=== PATIENT | male | born 1975 | race Hispanic/Latino ===

== ENCOUNTER 2018-02-12 11:08 | Emergency (ER) | payer SELFPAY ==
--- OUTSIDE RECORDS SUMMARY | 2018-02-12 11:14 | XMS REPORT | Continuity of Care Document ---
:1975 Author Organization Interface Problems Problem Status Onset Classification Date Comments Source Date Reported Non-ST elevation 07/12/19 10/09/2017 myocardial [address] [place] [address] elevation 07/10/19 10/07/[address] [facility] myocardial 18 infarction of unspecified site STEMI Active 07/02/19 18 [place] CHEST PAIN Active 07/02/19 [facility] Discharge 05/03/19 05/06/[address] [facility] Diagnosis: Acute 17 Hyperglycemia LOW BLOOD SUGAR Active 05/02/19 [facility] 17 [place] ABDOMINAL PAIN Active 10/11/19 14 [place] Discharge 07/17/19 07/18/2013 Diagnosis: 14 [facility] Costochondritis, Chest wall pain EXCESSIVE Active 02/14/20 URINATION 11 [facility] Diverticulitis Resolved Problem 10/09/2017 [facility] DM (<span Resolved Problem 10/09/2017 ID="[id number]"> [place] Confirmed</span>) [facility] Obesity Resolved Problem 10/09/2017 [facility] Type 2 diabetes 10/09/[address] [facility] complications [place] Obesity, 10/09/2017 unspecified [facility] Essential 10/09/2017 hypertension [place], [place] Diaphragmatic 10/09/2017 hernia without [facility] obstruction or gangrene nursing home use of 10/09/[address] [facility] drugs [facility] Body mass index 10/09/2017 34.0-34.9, adult [place] CHEST PAIN, Active UNSPECIFIED [facility] Medications Medication Details Route Status Patient Ordering Order Source Instructions Provider Date Glipizide 2.5 1 tab, Route: Inactive MG / Metformin PO, Drug Form: 2017 [place] hydrochloride TAB, Dosing 500 MG Oral Weight 95.909, Tablet kg, BID, Start date: 07/03/17 17:00:00 CDT, Duration: 30 day, Stop date: 08/02/17 9:00:00 CDT Glucophage 500 mg, 1 tab, Inactive Route: PO, Drug 2017 [facility] form: TAB, BID-Meals, Start date: 07/03/17 17:00:00 CDT, Duration: 30 day, Stop date: 08/02/17 8:00:00 CDTNotes: (Same as: Glucophage) Take with meal Glucotrol 2.5 mg, 0.5 tab, Inactive Route: PO, Drug 2017 [facility] form: TAB, BID-Before Meals, Start date: 07/03/17 16:30:00 CDT, Duration: 30 day, Stop date: 08/02/17 7:30:00 CDT metoprolol 25 mg=1 tab, PO, Active tartrate 25 mg Q12H, 0 2017 [facility] oral tablet Refill(s) pantoprazole 40 40 mg=1 tab, PO, Active mg oral enteric Daily, 0 2018 [facility] coated tablet Refill(s) isosorbide 30 mg=1 tab, PO, Active mononitrate 30 QAM, 0 Refill(s) 2017 [place] mg oral tablet, extended release atorvastatin 10 10 mg=1 tab, PO, Active MH mg oral tablet Bedtime, 0 2017 [facility] Refill(s) aspirin 325 mg 325 mg=1 tab, Active MH tablet PO, Daily, 0 2018 [facility] Refill(s) Glipizide 2.5 1 tab, PO, BID, Active MH MG / Metformin 0 Refill(s) 2017 [facility] hydrochloride 500 MG Oral Tablet Glipizide 2.5 1 tab, PO, BID, Inactive MH MG / Metformin # 60 tab, 0 2018 [facility] hydrochloride Refill(s), 500 MG Oral Pharmacy: Tablet [facility] aspirin 325 mg 325 mg=1 tab, Inactive 07/03/ MH tablet PO, Daily, # 30 2018 [facility] tab, 0 Refill(s), Pharmacy: [facility] atorvastatin 10 10 mg=1 tab, PO, Inactive MH mg oral tablet Bedtime, # 30 2018 [place] tab, 0 Refill(s), Pharmacy: [facility] isosorbide 30 mg=1 tab, PO, Inactive mononitrate 30 QAM, # 30 tab, 0 2018 [place] mg oral tablet, Refill(s), extended Pharmacy: release [facility] metoprolol 25 mg=1 tab, PO, Inactive tartrate 25 mg Q12H, # 60 tab, 2017 [facility] oral tablet 0 Refill(s), Pharmacy: [facility] pantoprazole 40 40 mg=1 tab, PO, Inactive mg oral enteric Daily, # 30 tab, 2017 [facility] coated tablet 0 Refill(s), Pharmacy: [facility] Dextrose 50% 25 gm, 50 mL, Inactive Syringe Route: IVP, Drug 2017 [facility] Form: INJ, Dosing Weight 95.909, kg, PRN, PRN Blood Glucose Results, Start date: 07/03/17 9:46:00 CDT, Duration: 30 day, Stop date: 08/02/17 9:45:00 CDT Glucagon 1 mg, Route: IM, Inactive Drug form: 2017 [facility] PDR/INJ, PRN, Dosing Weight 95.909, kg, PRN Blood Glucose Results, Start date: 07/03/17 9:46:00 CDT, Duration: 30 day, Stop date: 08/02/17 9:45:00 CDT Insulin Lispro 3 unit, 0.03 mL, Inactive Route: SUB-Q, 2017 [facility] Drug form: SOLN, Bedtime, Dosing Weight 95.909, kg, PRN Blood Glucose Results, Start date: 07/03/17 9:46:00 CDT, Duration: 30 day, Stop date: 08/02/17 9:45:00 CDTNotes: (Same as: Humalog ) Roll in palms of hands gently; Do not shake `vigorously. "Single Patient Use Only " WASTE: F/P - Black; E - Municipal Trash Bin Stable for 28 days at room temperature. Expires in days from Da te PreNexa premier 1 cap, Route: No Longer with DHA PO, Dosing Active 2017 [facility] Weight 95.909, kg, Daily, Start date: 07/03/17 9:00:00 CDT, Duration: 30 day, Stop date: 08/01/17 9:00:00 CDT 1 tab, Route: Inactive Multivitamins PO, Drug Form: 2017 [facility] with Folic Acid TAB, Dosing 0.8 mg oral Weight 95.909, tablet kg, Daily, Start date: 07/03/17 9:00:00 CDT, Duration: 30 day, Stop date: 08/01/17 9:00:00 CDT Lipitor 10 mg, 1 tab, No Longer Route: PO, Drug Active 2017 [facility] form: TAB, Bedtime, Dosing Weight 95.909, kg, Start date: 07/02/17 21:00:00 CDT, Duration: 30 day, Stop date: 07/31/17 21:00:00 CDTNotes: (Same As: Lipitor) Dextrose 50% 12.5 gm, 25 mL, No Longer Syringe Route: IVP, Drug Active 2017 [facility] Form: INJ, Dosing Weight 95.909, kg, PRN, PRN Blood Glucose Results, Start date: 07/02/17 15:30:00 CDT, Duration: 30 day, Stop date: 08/01/17 15:29:00 CDT Glucagon 1 mg, Route: IM, No Longer Drug form: Active 2017 [facility] PDR/INJ, PRN, Dosing Weight 95.909, kg, PRN Blood Glucose Results, Start date: 07/02/17 15:30:00 CDT, Duration: 30 day, Stop date: 08/01/17 15:29:00 CDT Insulin Lispro 2 unit, 0.02 mL, No Longer Route: SUB-Q, Active 2017 [facility] Drug form: SOLN, TID-Before Meals, Dosing Weight 95.909, kg, PRN Blood Glucose Results, Start date: 07/02/17 15:30:00 CDT, Duration: 30 day, Stop date: 08/01/17 15:29:00 CDTNotes: (Same as: Humalog ) Roll in palms of hands gently; Do not shake `vigorously. "Single Patient Use Only " WASTE: F/P - Black; E - Municipal Trash Bin Stable for 28 days at room temperature. Expires in days from Da te Lovenox 40 mg, 0.4 mL, No Longer Route: SUB-Q, Active 2017 [facility] Drug form: INJ, [id number], Dosing Weight 95.909, kg, Start date: 07/02/17 11:00:00 CDT, Duration: 30 day, Stop date: 07/31/17 11:00:00 CDTNotes: (Same as: Lovenox) Imdur 30 mg, 1 tab, No Longer Route: PO, Drug Active 2017 [facility] form: ERTAB, QAM, Dosing Weight 95.909, kg, Start date: 07/02/17 10:30:00 CDT, Duration: 30 day, Stop date: 08/01/17 9:00:00 CDTNotes: (Same as:Imdur) Protonix 40 mg, 1 tab, No Longer Route: PO, Drug Active 2017 [facility] form: ECTAB, Daily, Dosing Weight 95.909, kg, Start date: 07/02/17 9:00:00 CDT, Duration: 30 day, Stop date: 07/31/17 9:00:00 CDTNotes: Tablet should not be chewed or crushed. (Same as: Protonix) Dilaudid 2 mg, 1 tab, No Longer Route: PO, Drug Active 2017 [facility] form: TAB, Q6H, Dosing Weight 95.909, kg, PRN Pain Score 4-6, Start date: 07/01/17 16:16:00 CDT, Duration: 30 day, Stop date: 07/31/17 16:15:00 CDTNotes: (Same as: Dilaudid) Insulin Lispro 4 unit, 0.04 mL, No Longer Route: SUB-Q, Active 2017 [facility] Drug form: SOLN, Bedtime, Dosing Weight 95.909, kg, PRN Blood Glucose Results, Start date: 07/01/17 13:48:00 CDT, Duration: 30 day, Stop date: 07/31/17 13:47:00 CDTNotes: (Same as: Humalog ) Roll in palms of hands gently; Do not shake `vigorously. "Single Patient Use Only " WASTE: F/P - Black; E - Municipal Trash Bin Stable for 28 days at room temperature. Expires in days from Da te Dextrose 50% 12.5 gm, 25 mL, No Longer Syringe Route: IVP, Drug Active 2017 [facility] Form: INJ, Dosing Weight 95.909, kg, PRN, PRN Blood Glucose Results, Start date: 07/01/17 13:48:00 CDT, Duration: 30 day, Stop date: 07/31/17 13:47:00 CDT Glucagon 1 mg, Route: IM, No Longer Drug form: Active 2017 [facility] PDR/INJ, PRN, Dosing Weight 95.909, kg, PRN Blood Glucose Results, Start date: 07/01/17 13:48:00 CDT, Duration: 30 day, Stop date: 07/31/17 13:47:00 CDT Ketorolac 30 mg, 1 mL, No Longer Route: IV, Drug Active 2017 [facility] form: INJ, Q6H, Dosing Weight 95.909, kg, PRN Pain Score 6-10, Start date: 07/01/17 10:41:00 CDT, Duration: 4 day, Stop date: 07/05/17 10:40:00 CDTNotes: (Same as:Toradol) IV bolus must be given >15 seconds. Give IM administration slowly and deeply into the muscle. Not for use > 4 days MEDICATION WASTE Product Size: 30 mg Product Wasted: ___ mg Visipaque 75 mL, Route: Inactive IV, Drug form: 2017 [facility] SOLN, ONCE, Dosing Weight 95.909, kg, Start date: 07/01/17 10:37:00 CDT, Stop date: 07/01/17 10:37:00 CDTNotes: (Same as: Visipaque). WASTE: F/P - Black; E - Municipal Trash Bin Acetaminophen 1 tab, Route: Inactive 300 MG / PO, Drug Form: 2017 [facility] Codeine TAB, Dosing Phosphate 30 MG Weight 95.909, Oral Tablet kg, Q4H, PRN [Tylenol with Pain Score 1-3, Codeine #3] Start date: 07/01/17 10:12:00 CDT, Duration: 30 day, Stop date: 07/31/17 10:11:00 CDT aspirin 325 mg 325 mg, 1 tab, No Longer tablet Route: PO, Drug Active 2017 [facility] form: ECTAB, Daily, Dosing Weight 96.004, kg, Start date: 07/01/17 9:00:00 CDT, Duration: 30 day, Stop date: 07/30/17 9:00:00 CDTNotes: (Do Not Crush) Do not crush or chew. metoprolol 25 mg, 1 tab, No Longer tartrate Route: PO, Drug Active 2017 [facility] form: TAB, Q12H, Dosing Weight 96.004, kg, Start date: 07/01/17 9:00:00 CDT, Duration: 30 day, Stop date: 07/30/17 21:00:00 CDTNotes: (Same as: Lopressor) Sodium Chloride 750 mL, Rate: 75 Inactive 0.9% IV 750 mL ml/hr, Infuse 2017 [facility] over: 10 hr, Route: IV, Dosing Weight 95.909 kg, Total Volume: 750, Start date: 07/01/17 8:51:00 CDT, Duration: 10 hr, Stop date: 07/01/17 18:50:00 CDT, 2.14, m2 Acetaminophen 650 mg, 2 tab, No Longer Route: PO, Drug Active 2017 [facility] form: TAB, Q4H, Dosing Weight 95.909, kg, PRN Pain Score 7-10, Start date: 07/01/17 8:51:00 CDT, Duration: 30 day, Stop date: 07/31/17 8:50:00 CDTNotes: Do not exceed 4 gm/day. (Same as: Tylenol) Sodium Chloride 1,000 mL, Infuse Inactive 0.9% (Bolus) IV Over: 1 hr, [address] [place] [address] Route: IV, ONCE, Priority: STAT, Dosing Weight 96.004 kg, Start date: 07/01/17 6:52:00 CDT, Stop date: 07/01/17 6:52:00 CDT Metoprolol 5 mg, Route: Inactive IVP, Drug form: 2018 [place] INJ, ONCE, Dosing Weight 96.004, kg, Priority: STAT, Start date: 07/01/17 6:48:00 CDT, Stop date: 07/01/17 6:48:00 CDT Nitroglycerin 0.4 mg, 1 tab, Inactive 0.4 MG Route: SL, Drug 2017 [place] Sublingual form: TAB, Tablet Q5Min, Dosing Weight 96.004, kg, PRN Chest Pain, Priority: STAT, Start date: 07/01/17 6:47:00 CDT, Duration: 3 doses or times, Stop date: Limited # of timesNotes: (Same as:Nitroquick, Nitrostat) "Do Not Crush" Sublingual tablet Saline Flush 10 mL, Route: Inactive 0.9% IVP, Drug Form: 2017 [place] INJ, Dosing Weight 96.004, kg, PRN, PRN Line Flush, Start date: 07/01/17 6:33:00 CDT, Duration: 30 day, Stop date: 07/31/17 6:32:00 CDTNotes: (Same as: BD Posiflush) Nystatin 100 1 appl, TOP, Active UNT/MG Topical TID, X 7 day, # 2017 [place] Ointment 15 gm, 0 Refill(s) Cephalexin 500 500 mg=1 cap, Active MG Oral Capsule PO, QID, X 7 2017 [place] [Keflex] day, # 28 cap, 0 Refill(s) Glipizide 2.5 1 tab, PO, BID, Active MG / Metformin # 60 tab, 0 2017 [place] hydrochloride Refill(s) 500 MG Oral Tablet Insulin regular 8 unit, 0.08 mL, Inactive Route: IVP, Drug 2016 [place] form: INJ, ONCE, Dosing Weight 109.091, kg, Priority: STAT, Start date: 05/03/16 3:29:00 INSURANCE RATER, Stop date: 05/03/16 3:29:00 CSTNotes: (Same as: Humulin R and NovoLIN R) WASTE: F/P - Black; E - Municipal Trash Bin (Do not shake) Insulin regular 10 unit, 0.1 mL, Inactive Route: IVP, Drug 2017 [place] form: INJ, ONCE, Dosing Weight 109.091, kg, Priority: STAT, Start date: 05/03/16 2:39:00 INSURANCE RATER, Stop date: 05/03/16 2:39:00 CSTNotes: (Same as: Humulin R and NovoLIN R) WASTE: F/P - Black; E - Municipal Trash Bin (Do not shake) Sodium Chloride 1,000 mL, 1000 Inactive 0.154 MEQ/ML ml/hr, Infuse 2016 [place] Injectable Over: 1 hr, Solution Route: IV, 1,000, Drug form: INJ, ONCE, Priority: STAT, Dosing Weight 109.091 kg, Start date: 05/03/16 2:39:00 INSURANCE RATER, Duration: 1 doses or times, Stop date: 05/03/16 2:39:00 INSURANCE RATER Dilaudid 1 mg, Route: IV, Inactive ONCE, Dosing 2013 [facility] Weight 109.091, kg, Start date: 10/10/13 19:20:00, Stop date: 10/10/13 19:20:00 Dilaudid 0.5 mg, Route: Inactive IV, ONCE, Dosing 2013 [facility] Weight 109.091, kg, Start date: 10/10/13 18:17:00, Stop date: 10/10/13 18:17:00 Dilaudid 0.5 mg, Route: Inactive IV, ONCE, Dosing 2013 [facility] Weight 109.091, kg, Start date: 10/10/13 15:52:00, Stop date: 10/10/13 15:52:00 Dilaudid 1 mg, Route: IV, Inactive ONCE, Dosing 2013 [facility] Weight 109.091, kg, Start date: 10/10/13 14:42:00, Stop date: 10/10/13 14:42:00 normal saline 1,000 mL, Rate: Inactive 0.9% IV 1000 mL 1,000 ml/hr, 2013 [facility] Infuse over: 1 hr, Route: IV, Dosing Weight 109.091 kg, Total Volume: 1,000, Priority: STAT, Start date: 10/10/13 14:41:00, Duration: 1 doses or times, Stop date: 10/10/13 15:40:00 Zofran 4 mg, Route: Inactive IVP, Drug form: 2013 [facility] INJ, ONCE, Dosing Weight 109.091, kg, Priority: STAT, Start date: 10/10/13 14:40:00, Stop date: 10/10/13 14:40:00 indomethacin 50 50 mg=1 cap, PO, Active mg oral capsule Q8H, # 30 cap, 0 2013 Refill(s) Ketorolac 30 mg, Route: Inactive IVP, Drug form: 2013 [facility] INJ, ONCE, Dosing Weight 109.091, kg, Priority: STAT, Start date: 07/16/13 1:27:00, Stop date: 07/16/13 1:27:00 aspirin 325 mg 325 mg, Route: Inactive tablet PO, Drug form: 2013 [facility] TAB, ONCE, Dosing Weight 109.091, kg, Priority: STAT, Start date: 07/16/13 1:27:00, Stop date: 07/16/13 1:27:00 Saline Flush 5 ml, Route: Inactive 0.9% IVP, Drug Form: 2013 [facility] INJ, Dosing Weight 109.091, kg, PRN, PRN Line Flush, Start date: 07/16/13 1:27:00, Duration: 30 day, Stop date: 08/15/13 1:26:00Notes: (Same as: BD Posiflush) Glipizide 10 MG 10 mg=1 tab, PO, Active Oral Tablet Daily, # 30 tab, 2013 0 Refill(s) Metformin 500 mg=1 tab, Active hydrochloride PO, BID, # 30 2013 [place] 500 MG Oral tab, 0 Refill(s) Tablet Saline Flush 5 mL, Route: Inactive 0.9% IVP, Drug Form: 2013 INJ, Dosing Weight 109.091, kg, Q8H, PRN Line Flush, Start date: 07/11/13 0:49:00, Duration: 30 day, Stop date: 08/10/13 0:48:00, Administer at least once every 8 hoursSpecial Instructions: Administer at least once every 8 hoursNotes: Same as: BD Posiflush Sterile Aspirin / 324 mg, Route: Inactive Calcium PO, ONCE, Dosing 2013 [facility] Carbonate Weight 109.091, kg, Priority: STAT, Start date: 07/11/13 0:49:00, Stop date: 07/11/13 0:49:00 metFORmin 500 500 mg, 1 tab, PO No Longer Nriagu mg oral tablet, Route: PO, Drug Active 2010 [facility] extended form: ERTAB, release Daily, Start date: 02/14/11 4:16:00, Duration: 30 day, Stop date: 03/15/11 9:00:00 Insulin regular 6 unit, Route: IV No Longer Nriagu IV, ONCE, Start Active 2010 [facility] date: 02/14/11 4:00:00, Stop date: 02/14/11 4:00:00 Sodium Chloride 1,000 mL, Rate: IV No Longer Nriagu 0.9% (Bolus) IV 1,000 ml/hr, Active 2010 [facility] 1000 mL Infuse over: 1 hr, Route: IV, Total Volume: 1,000, Bolus Dose, Priority: STAT, Start date: 02/14/11 2:51:00, Duration: 1 doses or times, Stop date: 02/14/11 3:50:00 metFORmin 500 500 mg, 1 tab, PO Active [place] mg oral tablet PO, BID, 60 tab, 2010 Substitution Allowed Insulin regular 10 unit, Route: IVP No Longer Nriagu IVP, ONCE, Active 2010 [facility] Priority: STAT, Start date: 02/14/11 0:49:00, Stop date: 02/14/11 0:49:00 Insulin regular 10 unit, Route: SUB-Q No Longer Nriagu SUB-Q, ONCE, Active 2010 [facility] Priority: STAT, Start date: 02/13/11 23:25:00, Stop date: 02/13/11 23:25:00 Sodium Chloride 1,000 mL, Rate: IV No Longer Nriagu 0.9% (Bolus) IV 1,000 ml/hr, Active 2010 [facility] 1000 mL Infuse over: 1 hr, Route: IV, Total Volume: 1,000, Bolus Dose, Priority: STAT, Start date: 02/13/11 23:24:00, Duration: 1 doses or times, Stop date: 02/14/11 0:23:00 Allergies, Adverse Reactions, Alerts Substance Category Reaction Severity Reaction Status Date Comments Source type Reported morphine Assertion Drug Active MH allergy [facility] Vicodin Assertion Drug Active MH allergy [facility] Hollis Assertion Drug Active MH allergy [facility] Immunizations Immunization Date Given Site Status Last Updated Comments Source Results Order Name Results Value Reference Date Interpretation Comments Source Range Barium Barium Barium Swallow w Esophagus Function DX 07/02 - Swallow w Swallow - [facility] Esophagus Esophagus Function Function DX DX CLINICAL HISTORY: Dysphagia - CHEST PAIN; MORGAGNI HERNIA ON CT CHEST. Read by: Justus Chawla MD Dictated Date/time: 07/02/17 13:06 Electronically Signed by: Justus Chawla MD 07/02/17 13:19 FINAL REPORT COMPARISON: CT chest of 07/01/2017. TECHNIQUE: Thin barium was utilized for prominent LPO images. Thick barium was utilized for upright imaging of the esophagus and pharynx. Hamburger meat with paste was given to evaluate motility with solids. FINDINGS: There is no delay in passage of bolus from the pharynx into the esophagus. The cricopharyngeus relaxes normally. There is no evidence for cricopharyngeal bar or Zenker's diverticulum. Prone and LPO images of the esophagus reveal no mass lesion or stricture. Upright images of the esophagus reveals mild esophageal dysmotility. No mass lesions or strictures are visualized. Subsequently 2 separate swallows of a small piece of hamburger meat and barium barium paste were fluoroscopically followed through the length of the esophagus. There is no significant delay in passage o f the solid barium bolus from the pharynx into the esophagus and subsequently into the stomach. IMPRESSION: Mild esophageal dysmotility. Otherwise, negative video esophagram. Fluoroscopy Time: About 2.8 minute. SL: [id number] CARDIAC Troponin-I 11.00 0.00 - 07/02 Result ENZYMES ng/mL 0.40 2018 Comment: [facility] Critical Result(s) called to Jovany Evans at 07/02/2017 05:53 by BE. Read back OK. ELECTROLYT AGAP 13.8 meq/L 10.0 - 07/02 ES 20.0 /2017 [facility] ELECTROLYT Potassium 3.8 meq/L 3.5 - 5.1 07/02 ES Lvl /2017 [facility] ELECTROLYT Chloride Lvl 103 meq/L 95 - 109 07/02 ES [facility] ELECTROLYT eGFR 128 07/02 Result Comment: The eGFR is calculated using the CKD-EPI formula. In most young, healthy individuals the eGFR will be >90 mL/ min/1.73m2. The eGFR declines with age. An eGFR of 60-89 may be normal in ES mL/min/1.7 /2017 some populations, particularly the elderly, for whom the CKD-EPI formula has not been extensively validated. Use of the eGFR is not recommended in the following populations: [facility] 3m2 Individuals with unstable creatinine concentrations, including patients and those with serious co-morbid conditions. Patients with extremes in muscle mass or diet. The data above are obtained from the National Kidney Disease Education Program (NKDEP) which additionally recommends that when the eGFR is used in patients with extremes of body mass index for purposes of drug dosing, the eGFR should be multiplied by the estimated BMI. ELECTROLYT Calcium Lvl 8.2 mg/dL 8.5 - 10.5 07/02 ES [facility] ELECTROLYT Sodium Lvl 134 meq/L 135 - 145 07/02 ES [facility] ELECTROLYT CO2 21 meq/L 24 - 32 07/02 ES [facility] ELECTROLYT BUN 12 mg/dL 7 - 22 07/02 ES [facility] ELECTROLYT Creatinine 0.56 mg/dL 0.50 - 07/02 ES Lvl 1.40 /2017 [facility] ELECTROLYT Glucose Lvl 240 mg/dL 70 - 99 / ES [facility] HEMATOLOGY Lymphocytes 21.3 % 20.0 - 04/ MH 40.0 /2017 [facility] HEMATOLOGY Monocytes 8.2 % 2.0 - 12.0 / [facility] HEMATOLOGY Segs 68.3 % 45.0 - 04/ 75.0 /2018 [facility] HEMATOLOGY Basophils # 0.1 K/CMM 0.0 - 0.2 / MH /2017 [facility] HEMATOLOGY Eosinophils 0.2 K/CMM 0.0 - 0.5 / # /2018 [facility] HEMATOLOGY Monocytes # 0.8 K/CMM 0.0 - 0.8 / MH /2017 [facility] HEMATOLOGY Segs-Bands # 7.0 K/CMM 1.5 - 8.1 07/02 /2017 [facility] HEMATOLOGY Lymphocytes 2.2 K/CMM 1.0 - 5.5 / MH # /2018 [facility] HEMATOLOGY Eosinophils 1.7 % 0.0 - 4.0 / /2017 [facility] HEMATOLOGY Basophils 0.5 % 0.0 - 1.0 07/02 [facility] HEMATOLOGY MPV 8.0 fL 7.4 - 10.4 07/[address] [facility] Platelet 220 K/CMM 133 - 450 07/02 /2017 [facility] HEMATOLOGY RBC 5.24 M/CMM 4.70 - / 6.10 /[address] [facility] Hgb 15.2 g/dL 14.0 - / 18.0 /[address] [facility] WBC 10.2 K/CMM 3.7 - 10.4 07/[address] [facility] MCV 82.3 fL 80.0 - 07/02 94.0 /2017 [facility] HEMATOLOGY Hct 43.1 % 42.0 - 07/02 54.0 /[address] [facility] MCHC 35.4 g/dL 32.0 - 07/02 36.0 /[address] [facility] MCH 29.1 pg 27.0 - 07/02 31.0 /2017 [facility] HEMATOLOGY RDW 13.5 % 11.5 - / 14.5 /[address] [facility] PT 13.3 s 12.0 - / 14.7 /2017 [facility] HEMATOLOGY INR 1.01 0.85 - 07/02 1.17 /2017 [facility] HEMATOLOGY PTT 28.8 s 22.9 - / 35.8 /2018 [facility] CARDIAC Troponin-I 1.90 ng/mL 0.00 - 04 Result ENZYMES 0.40 /2018 Comment: [facility] Critical Result(s) called to Alexandria Jerome at 07/01/2017 16:38 by Read back OK. CARDIAC Troponin-I 0.08 ng/mL 0.00 - 04 ENZYMES 0.40 /2018 [facility] CHEM PANEL eGFR 120 07/01 Result Comment: The eGFR is calculated using the CKD-EPI formula. In most young, healthy individuals the eGFR will be >90 mL/ min/1.73m2. The eGFR declines with age. An eGFR of 60-89 may be normal in mL/min/1.7 some populations, particularly the elderly, for whom the CKD-EPI formula has not been extensively validated. Use of the eGFR is not recommended in the following populations: [facility] 3m2 Individuals with unstable creatinine concentrations, including patients and those with serious co-morbid conditions. Patients with extremes in muscle mass or diet. The data above are obtained from the National Kidney Disease Education Program (NKDEP) which additionally recommends that when the eGFR is used in patients with extremes of body mass index for purposes of drug dosing, the eGFR should be multiplied by the estimated BMI. CHEM PANEL Creatinine 0.65 mg/dL 0.50 - 07/01 Lvl 1.40 [facility] HEMATOLOGY Hgb 15.0 g/dL 14.0 - 07/01 18.0 [facility] Chest w/wo Chest w/wo Clinical Indication: Chest pain - possible pericardial cyst or large hiatal hernia 07/01 - contrast contrast CT /2017 - [facility] CT Comparison: None Read by: Leo Borges MD Dictated Date/time: 07/01/17 14:42 Electronically Signed by: Leo Borges MD 07/01/17 14:52 FINAL REPORT TECHNIQUE: Sequential trans-axial images were obtained thru the chest and upper abdomen before and after administration of iodinated contrast. Coronal and sagittal reconstructions were obtained. 75 cc of Visipaque was used for the exam. Dose: NQM=766 mGy-cm FINDINGS: LUNG PARENCHYMA AND PLEURA: There are no lung nodules. There is no significant interstitial lung disease. There are no pleural effusions. There is no pneumothorax. AIRWAY: The central airway is normal. . MEDIASTINUM: There is no mediastinal lymphadenopathy. There is fatty mass in the anterior mediastinum slightly to the right which is compressing the right heart border and measures 10.9 x 6.6 x 10.2 c m in size. There is a peripherally calcified lesion within the fat which may represent prior fat necrosis. There is a defect in the anterior aspect of the diaphragm. HEART: There is no evidence of RV strain. The cardiac chambers are otherwise unremarkable. There is no pericardial effusion. VASCULAR STRUCTURES: The pulmonary arteries and great vessels are unremarkable. The thoracic aorta is within normal limits.. The superior vena cava is unremarkable. OSSEOUS STRUCTURES: There are no significant osseous abnormalities seen. VISUALIZED UPPER ABDOMEN: The visualized upper abdomen is within normal limits. IMPRESSION: 1. 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 SL: [id number] CARDIAC CK MB Index 1.3 0.0 - 2.5 / ENZYMES /2017 [facility] CARDIAC CK MB 2.8 ng/mL 0.5 - 3.6 / ENZYMES /2017 [facility] CARDIAC Troponin-I null 0.00 - 04/ MH ENZYMES 0.40 /2018 [facility] CARDIAC Total CK 220 unit/L 12 - 191 07/01 ENZYMES /2017 [facility] CHEM PANEL eGFR 110 07/01 Result Comment: The eGFR is calculated using the CKD-EPI formula. In most young, healthy individuals the eGFR will be >90 mL/ min/1.73m2. The eGFR declines with age. An eGFR of 60-89 may be normal in mL/min/1.7 some populations, particularly the elderly, for whom the CKD-EPI formula has not been extensively validated. Use of the eGFR is not recommended in the following populations: [address] Individuals with unstable creatinine concentrations, including patients and those with serious co-morbid conditions. Patients with extremes in muscle mass or diet. The data above are obtained from the National Kidney Disease Education Program (NKDEP) which additionally recommends that when the eGFR is used in patients with extremes of body mass index for purposes of drug dosing, the eGFR should be multiplied by the estimated BMI. CHEM PANEL Potassium 3.8 meq/L 3.5 - 5.1 07/01 MH Lvl [facility] CHEM PANEL Sodium Lvl 132 meq/L 135 - 145 / MH [facility] CHEM PANEL Globulin 4.1 g/dL 2.7 - 4.2 / MH [facility] CHEM PANEL CO2 29 meq/L 24 - 32 / [facility] CHEM PANEL Chloride Lvl 99 meq/L 95 - 109 / [facility] CHEM PANEL AGAP 7.8 meq/L 10.0 - 04 MH 20.0 [facility] CHEM PANEL Total 8.2 g/dL 6.4 - 8.4 / MH Protein [facility] CHEM PANEL Albumin Lvl 4.1 g/dL 3.5 - 5.0 07/01 [facility] CHEM PANEL B/C Ratio 20 6 - 25 07/01 [facility] CHEM PANEL Calcium Lvl 8.5 mg/dL 8.5 - 10.5 07/01 [facility] CHEM PANEL ALT 65 unit/L 0 - 65 07/01 [facility] CHEM PANEL AST 37 unit/L 0 - 37 07/01 [facility] CHEM PANEL A/G Ratio 1.0 0.7 - 1.6 07/01 [facility] CHEM PANEL Bili Total 1.0 mg/dL 0.2 - 1.3 07/01 [facility] CHEM PANEL Alk Phos 137 unit/L 39 - 136 07/01 [facility] CHEM PANEL BUN 16 mg/dL 7 - 22 07/01 [facility] CHEM PANEL Creatinine 0.81 mg/dL 0.50 - 04 MH Lvl 1.40 [facility] CHEM PANEL Glucose Lvl 268 mg/dL 70 - 99 07/01 [facility] HEMATOLOGY Segs-Bands # 4.1 K/CMM 1.5 - 8.1 07/01 [facility] HEMATOLOGY Basophils 1.0 % 0.0 - 1.0 07/01 [facility] HEMATOLOGY Eosinophils 2.4 % 0.0 - 4.0 07/01 [facility] HEMATOLOGY Lymphocytes 2.5 K/CMM 1.0 - 5.5 07/01 [facility] HEMATOLOGY Segs 54.8 % 45.0 - 07/01 75.0 [facility] HEMATOLOGY Lymphocytes 33.4 % 20.0 - 04 MH 40.0 [facility] HEMATOLOGY Monocytes 8.4 % 2.0 - 12.0 07/01 [facility] HEMATOLOGY Monocytes # 0.6 K/CMM 0.0 - 0.8 07/01 [facility] HEMATOLOGY Basophils # 0.1 K/CMM 0.0 - 0.2 07/01 [facility] HEMATOLOGY Eosinophils 0.2 K/CMM 0.0 - 0.5 07/01 [facility] HEMATOLOGY MPV 7.9 fL 7.4 - 10.4 07/01 [facility] HEMATOLOGY RDW 13.8 % 11.5 - 07/01 MH 14.5 [facility] HEMATOLOGY Platelet 265 K/CMM 133 - 450 07/01 MH /2017 [facility] HEMATOLOGY WBC 7.4 K/CMM 3.7 - 10.4 07/01 [facility] HEMATOLOGY MCHC 36.5 g/dL 32.0 - 07/01 MH 36.0 [facility] HEMATOLOGY MCH 29.9 pg 27.0 - 07/01 MH 31.0 [facility] HEMATOLOGY MCV 81.9 fL 80.0 - 07/01 MH 94.0 [facility] HEMATOLOGY Hgb 17.2 g/dL 14.0 - 07/01 MH 18.0 [facility] HEMATOLOGY Hct 47.1 % 42.0 - 07/01 MH 54.0 [facility] HEMATOLOGY RBC 5.75 M/CMM 4.70 - 07/01 MH 6.10 [facility] Chest Chest 1view EXAM: Chest x-ray one view (frontal) 07/01 - [facility] 1view DX DX /2017 - [place] HISTORY: - stemi. Read by: Devika Fernandez MD Dictated Date/time: 07/01/17 06:56 Electronically Signed by: Devika Fernandez MD 07/01/17 07:00 FINAL REPORT COMPARISON: 07/16/2013 FINDINGS: Mediastinum: The heart shadow is severely enlarged, similar to the comparison study given differences in technique. Lungs and pleura: No focal consolidation, pleural effusion or pneumothorax. The pulmonary vascularity is normal. No acute osseous displaced abnormality is noted. IMPRESSION: The cardiac shadow is severely enlarged, similar to the prior comparison study dated 07/16/2013 and may represent cardiomegaly. Further imaging can be obtained if concern for pericardial effusion. The pulmonary vascularity is normal. SL: [id number] CHEM PANEL Bili Total 0.7 mg/dL 0.2 - 1.3 05/03 /2016 [facility] CHEM PANEL ASPARTATE 16 unit/L 0 - 37 05/03 TRANSAMINASE [facility] CHEM PANEL Total 7.4 g/dL 6.4 - 8.4 05/03 /2016 [facility] CHEM PANEL Alk Phos 147 unit/L 39 - 136 05/03 [facility] CHEM PANEL Creatinine 0.84 mg/dL 0.50 - 05/03 Lvl 1.40 /2016 [facility] CHEM PANEL BUN 12 mg/dL 7 - 22 05/03 [facility] CHEM PANEL Glucose Lvl 393 mg/dL 70 - 99 05/03 [facility] CHEM PANEL eGFR 109 05/03 Result Comment: The eGFR is calculated using the CKD-EPI formula. In most young, healthy individuals the eGFR will be >90 mL/ min/1.73m2. The eGFR declines with age. An eGFR of 60-89 may be normal in mL/min/1.7 some populations, particularly the elderly, for whom the CKD-EPI formula has not been extensively validated. Use of the eGFR is not recommended in the following populations: [address] Individuals with unstable creatinine concentrations, including patients and those with serious co-morbid conditions. Patients with extremes in muscle mass or diet. The data above are obtained from the National Kidney Disease Education Program (NKDEP) which additionally recommends that when the eGFR is used in patients with extremes of body mass index for purposes of drug dosing, the eGFR should be multiplied by the estimated BMI. CHEM PANEL Chloride Lvl 100 meq/L 95 - 109 05/03 [facility] CHEM PANEL Potassium 3.8 meq/L 3.5 - 5.1 05/03 Lvl [facility] CHEM PANEL Sodium Lvl 138 meq/L 135 - 145 05/03 [facility] CHEM PANEL Calcium Lvl 8.9 mg/dL 8.5 - 10.5 05/03 [facility] CHEM PANEL CO2 27 meq/L 24 - 32 05/03 [facility] CHEM PANEL Albumin Lvl 3.8 g/dL 3.5 - 5.0 05/03 [facility] CHEM PANEL ALANINE 45 unit/L 0 - 65 05/03 AMINOTRANS [facility]ASE CHEM PANEL AGAP 14.8 meq/L 10.0 - 02 MH 20.0 [facility] CHEM PANEL Globulin 3.6 g/dL 2.7 - 4.2 05/03 [facility] CHEM PANEL B/C Ratio 14 6 - 25 05/03 [facility] CHEM PANEL A/G Ratio 1.1 0.7 - 1.6 05/03 [facility] HEMATOLOGY Lymphocytes 2.5 K/CMM 1.0 - 5.5 05/03 MH # [facility] HEMATOLOGY Eosinophils 0.2 K/CMM 0.0 - 0.5 05/03 [facility] HEMATOLOGY Monocytes # 0.6 K/CMM 0.0 - 0.8 / [facility] HEMATOLOGY Basophils # 0.1 K/CMM 0.0 - 0.2 05/03 [facility] HEMATOLOGY Lymphocytes 29.4 % 20.0 - 02/ MH 40.0 /2016 [facility] HEMATOLOGY Segs 60.7 % 45.0 - / MH 75.0 [facility] HEMATOLOGY Monocytes 7.1 % 2.0 - 12.0 05/03 [facility] HEMATOLOGY Basophils 1.0 % 0.0 - 1.0 05/03 [facility] HEMATOLOGY Eosinophils 1.8 % 0.0 - 4.0 05/03 [facility] HEMATOLOGY Segs-Bands # 5.2 K/CMM 1.5 - 8.1 05/03 [facility] HEMATOLOGY MCH 28.3 pg 27.0 - 05/03 MH 31.0 [facility] HEMATOLOGY RDW 13.7 % 11.5 - 05/03 MH 14.5 [facility] HEMATOLOGY Hgb 15.5 g/dL 14.0 - 05/03 MH 18.0 [facility] HEMATOLOGY MCV 80.3 fL 80.0 - 05/03 94.0 [facility] HEMATOLOGY MCHC 35.2 g/dL 32.0 - 05/03 36.0 [facility] HEMATOLOGY MPV 8.3 fL 7.4 - 10.4 05/03 [facility] HEMATOLOGY Platelet 243 K/CMM 133 - 450 05/03 [facility] HEMATOLOGY RBC X 10x6 5.47 M/CMM 4.70 - 05/03 6.10 [facility] HEMATOLOGY Hct 43.9 % 42.0 - 05/03 54.0 [facility] HEMATOLOGY WBC X 10x3 8.6 K/CMM 3.7 - 10.4 05/03 [facility] URINE AND UA pH 5.0 5.0 - 8.0 05/03 [facility] URINE AND UA Spec Grav <=1.005 <=1.030 05/03 STOOL
*NA*< [facility] br/>( 7 2:55 AM) URINE AND UA Color Yellow Yellow 05/03 [facility] *NA* (05/03/16 2:55 AM) URINE AND UA Turbidity Clear Clear 05/03 STOOL [facility] (05/03/16 2:55 AM) URINE AND UA Mucus None Seen None Seen 05/03 STOOL [facility] (05/03/16 2:55 AM) URINE AND UA Bacteria None Seen None Seen 05/03 STOOL [facility] (05/03/16 2:55 AM) URINE AND UA [place] Yeast Few /HPF None Seen 05/03 STOOL /HPF [facility] URINE AND UA RBC None Seen 0 - 2 05/03 STOOL [facility] (05/03/16 2:55 AM) URINE AND UA Bili Negative Negative 05/03 STOOL [facility] *NA* (05/03/16 2:55 AM) URINE AND UA Blood Negative Negative 05/03 STOOL [facility] (05/03/16 2:55 AM) URINE AND UA Glucose 500 mg/dL Negative 05/03 STOOL mg/dL [facility] URINE AND UA Protein Negative Negative 05/03 STOOL [facility] (05/03/16 2:55 AM) URINE AND UA Ketones Negative Negative 05/03 STOOL [facility] *NA* (05/03/16 2:55 AM) URINE AND UA WBC 0-2 /HPF None Seen 05/03 [facility] /HPF [facility] URINE AND UA Nitrite Negative Negative 05/03 STOOL [facility] (05/03/16 2:55 AM) URINE AND UA 0.2 EU/dL 0.1 - 1.0 05/03 [facility] Urobilinogen [facility] URINE AND UA Leuk Est Negative Negative 05/03 STOOL [facility] (05/03/16 2:55 AM) URINE AND UA Sq Epi None Seen Few 05/03 STOOL [facility] (05/03/16 2:55 AM) URINE AND UA Mucus Few /LPF None Seen 10/10 STOOL /LPF /2013 [facility] URINE AND UA pH 5.5 5.0 - 8.0 10/10 STOOL [facility] URINE AND UA Protein Negative Negative 10/10 STOOL [facility] (10/10/13 3:25 PM) URINE AND UA Turbidity Clear Clear 10/10 STOOL [facility] (10/10/13 3:25 PM) URINE AND UA Spec Grav 1.025 <=1.030 10/10 STOOL [facility] URINE AND UA Glucose Negative Negative 10/10 STOOL [facility] (10/10/13 3:25 PM) URINE AND UA Nitrite Negative Negative 10/10 STOOL [facility] (10/10/13 3:25 PM) URINE AND UA Blood Trace Negative 10/10 STOOL [facility] *ABN* (10/10/13 3:25 PM) URINE AND UA Ketones Negative Negative 10/10 STOOL [facility] *NA* (10/10/13 3:25 PM) URINE AND UA Bili Small Negative 10/10 STOOL [facility] *ABN* (10/10/13 3:25 PM) URINE AND UA Color Yellow Yellow 10/10 STOOL [facility] *NA* (10/10/13 3:25 PM) URINE AND UA RBC 0-2 /HPF 0 - 2 10/10 STOOL [facility] URINE AND UA Bacteria Few /HPF None Seen 10/10 STOOL /HPF [facility] URINE AND UA Sq Epi Few /LPF Few /LPF 10/10 STOOL [facility] URINE AND UA WBC 3-5 /HPF None Seen 10/10 STO[facility] /HPF [facility] URINE AND UA 1.0 EU/dL 0.1 - 1.0 10/10 STOOL Urobilinogen [facility] URINE AND UA Leuk Est Small Negative 10/10 STOOL [facility] *ABN* (10/10/13 3:25 PM) CHEM PANEL Lipase Lvl 54 unit/L 73 - 393 10/10 [facility] CHEM PANEL Globulin 3.6 g/dL 2.0 - 4.0 10/10 [facility] CHEM PANEL A/G Ratio 1.0 0.7 - 1.6 10/10 [facility] CHEM PANEL B/C Ratio 17 6 - 25 10/10 [facility] CHEM PANEL AGAP 10.9 meq/L 10.0 - 10/10 20.0 /2013 [facility] CHEM PANEL AST 40 unit/L 0 - 37 10/10 [facility] CHEM PANEL Total 7.3 g/dL 6.4 - 8.4 10/10 [facility] CHEM PANEL eGFR 118 10/10 1Result Comment: The eGFR is calculated using the CKD-EPI formula. In most young, healthy individuals the eGFR will be > 90 mL/min/1.73m2. The eGFR declines with age. An eGFR of 60-89 may be normal in mL/min/1. some populations, particularly the elderly, for whom the CKD-EPI formula has not been extensively validated. Use of the eGFR is not recommended in the following populations: [facility] 3m2 Individuals with unstable creatinine concentrations, including patients and those with serious co-morbid conditions. Patients with extremes in muscle mass or diet. The data above are obtained from the National Kidney Disease Education Program (NKDEP) which additionally recommends that when the eGFR is used in patients with extremes of body mass index for purposes of drug dosing, the eGFR should be multiplied by the estimated BMI. CHEM PANEL Albumin Lvl 3.7 g/dL 3.5 - 5.0 10/10 [facility] CHEM PANEL ALT 106 unit/L 0 - 65 10/10 [facility] CHEM PANEL BUN 12 mg/dL 7 - 22 10/10 [facility] CHEM PANEL Glucose Lvl 147 mg/dL 70 - 99 10/10 2Interpretive Data: Adult reference range values reflect the clinical guidelines of the [place] [employer]. [facility] CHEM PANEL Creatinine 0.7 mg/dL 0.5 - 1.4 10/10 [facility] CHEM PANEL Alk Phos 80 unit/L 39 - 136 10/10 [facility] CHEM PANEL Potassium 3.9 meq/L 3.5 - 5.1 10/10 [facility] CHEM PANEL Sodium Lvl 140 meq/L 135 - 145 10/10 [facility] CHEM PANEL Bili Total 1.0 mg/dL 0.2 - 1.3 10/10 [facility] CHEM PANEL Calcium Lvl 8.8 mg/dL 8.5 - 10.5 10/10 [facility] CHEM PANEL Chloride Lvl 109 meq/L 95 - 109 10/10 [facility] CHEM PANEL CO2 24 meq/L 24 - 32 10/10 [facility] CHEM PANEL Amylase Lvl 23 unit/L 25 - 115 10/10 [facility] HEMATOLOGY Basophils # 0.1 K/CMM 0.0 - 0.2 10/10 [facility] HEMATOLOGY Eosinophils 0.2 K/CMM 0.0 - 0.5 10/10 [facility] HEMATOLOGY Monocytes 8.1 % 2.0 - 12.0 10/10 /2013 [facility] HEMATOLOGY Eosinophils 2.3 % 0.0 - 4.0 10/10 /2013 [facility] HEMATOLOGY Basophils 0.7 % 0.0 - 1.0 10/10 /2013 [facility] HEMATOLOGY Segs 67.6 % 45.0 - 10/10 MH 75.0 /2013 [facility] HEMATOLOGY Lymphocytes 21.3 % 20.0 - 10/10 MH 40.0 /2013 [facility] HEMATOLOGY Monocytes # 0.6 K/CMM 0.0 - 0.8 / /2013 [facility] HEMATOLOGY Segs-Bands # 5.4 K/CMM 1.5 - 8.1 10/10 /2013 [facility] HEMATOLOGY Lymphocytes 1.7 K/CMM 1.0 - 5.5 10/10 MH # /2014 [facility] HEMATOLOGY MPV 8.0 fL 7.4 - 10.4 10/10 /[address] [facility] Hgb 14.8 g/dL 14.0 - 10/10 18.0 /2013 [facility] HEMATOLOGY Hct 42.5 % 42.0 - 10/10 54.0 /2013 [facility] HEMATOLOGY RDW 13.5 % 11.5 - 10/10 14.5 /2013 [facility] HEMATOLOGY Platelet 244 K/CMM 133 - 450 10/10 /2013 [facility] HEMATOLOGY WBC 8.0 K/CMM 3.7 - 10.4 10/10 [facility] HEMATOLOGY MCV 80.5 fL 80.0 - 10/10 94.0 /[address] [facility] MCH 28.0 pg 27.0 - 10/10 31.0 /2013 [facility] HEMATOLOGY RBC 5.28 M/CMM 4.70 - 10/10 6.10 /2013 [facility] HEMATOLOGY MCHC 34.8 g/dL 32.0 - 10/10 36.0 /2013 [facility] Abdomen/Pe Abdomen/Pelv CT scan of the abdomen and pelvis with contrast: 10/10 - lv w IV is w IV /2013 - [facility] contrast contrast CT CT Exam reason: Abdominal pain, acute hx of diverticulitis with colectomy and hernia Read by: Rakesh Barksdale MD Dictated Date/time: 10/10/13 16:34 Electronically Signed by: Rakesh Barksdale MD 10/10/13 16:40 FINAL REPORT Multiple computerized axial tomograms of the abdomen and pelvis were obtained after administration of oral and intravenous contrast. Dependent volume loss is noted at the lung bases bilaterally. 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 The heart is mildly enlarged. Diffuse fatty infiltration of the liver is noted. The gallbladder is distended. Nonspecific bilateral adrenal nodularity is noted statistically likely representing adenomata. Postoperative changes are noted at the ventral abdominal wall in the midline. Liver, spleen, pancreas, kidneys and adrenal glands have an otherwise normal CT appearance. Left paramedian ventral abdominal wall hernia defect measuring 4.1 cm is noted conveying bowel and fat into a moderate to large hernia sac containing fluid. Ventral abdominal wall hernia defect laterall y on the left is noted measuring 5.8 cm conveying fat and bowel into a moderate to large hernia sac containing fluid. Skin thickening and edema are noted in the subcutaneous fat adjacent to these hernia sacs. There is dilated fluid-filled small bowel present at the lower abdomen and within the hernia sacs. Decompressed distal ileal segments are noted. The prostate and seminal vesicles are mildly enlarged. Postoperative changes are noted at the sigmoid colon. No free fluid or pneumoperitoneum is noted at the abdomen and pelvis. IMPRESSION: 1. Small bowel obstruction secondary to incarcerated hernias at the left side of the ventral abdominal wall containing small bowel, fat and fluid within the hernia sacs. 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 3. The heart is mildly enlarged. 4. Diffuse fatty infiltration of the liver is noted. 5. Gallbladder hydrops. SL:12 CARDIAC CK MB Index 0.8 0.0 - 2.5 07/16 ENZYMES [facility] CARDIAC Total CK 216 unit/L 12 - 191 07/16 ENZYMES [facility] CARDIAC CK MB 1.7 ng/mL 0.5 - 3.6 07/16 ENZYMES [facility] CARDIAC Troponin-I null 0.00 - 07/16 EN[facility]YM[facility] 0.40 /2014 [facility] CHEM PANEL eGFR 109 07/16 1Result Comment: The eGFR is calculated using the CKD-EPI formula. In most young, healthy individuals the eGFR will be > 90 mL/min/1.73m2. The eGFR declines with age. An eGFR of 60-89 may be normal in MH mL/min/1.7 /2013 some populations, particularly the elderly, for whom the CKD-EPI formula has not been extensively validated. Use of the eGFR is not recommended in the following populations: [facility] 3m2 Individuals with unstable creatinine concentrations, including patients and those with serious co-morbid conditions. Patients with extremes in muscle mass or diet. The data above are obtained from the National Kidney Disease Education Program (NKDEP) which additionally recommends that when the eGFR is used in patients with extremes of body mass index for purposes of drug dosing, the eGFR should be multiplied by the estimated BMI. CHEM PANEL Calcium Lvl 9.5 mg/dL 8.5 - 10.5 07/16 [facility] CHEM PANEL Total 8.2 g/dL 6.4 - 8.4 07/16 [facility] CHEM PANEL Bili Total 0.5 mg/dL 0.2 - 1.3 07/16 [facility] CHEM PANEL AGAP 11.0 meq/L 10.0 - 07/16 20.0 [facility] CHEM PANEL Glucose Lvl 243 mg/dL 70 - 99 07/16 2Interpretive Data: Adult reference range values reflect the clinical guidelines of the [place] [employer]. [facility] CHEM PANEL Albumin Lvl 4.3 g/dL 3.5 - 5.0 07/16 [facility] CHEM PANEL ALT 102 unit/L 0 - 65 07/16 [facility] CHEM PANEL Alk Phos 116 unit/L 39 - 136 07/16 [facility] CHEM PANEL Potassium 4.0 meq/L 3.5 - 5.1 07/16 [facility] CHEM PANEL Sodium Lvl 137 meq/L 135 - 145 07/16 [facility] CHEM PANEL BUN 13 mg/dL 7 - 22 07/16 [facility] CHEM PANEL Creatinine 0.9 mg/dL 0.5 - 1.4 07/16 [facility] CHEM PANEL Chloride Lvl 104 meq/L 95 - 109 07/16 [facility] CHEM PANEL CO2 26 meq/L 24 - 32 07/16 [facility] CHEM PANEL AST 27 unit/L 0 - 37 07/16 [facility] CHEM PANEL Globulin 3.9 g/dL 2.0 - 4.0 07/16 [facility] CHEM PANEL B/C Ratio 14 6 - 25 07/16 [facility] CHEM PANEL A/G Ratio 1.1 0.7 - 1.6 07/16 [facility] HEMATOLOGY Basophils # 0.1 K/CMM 0.0 - 0.2 07/16 /2013 [facility] HEMATOLOGY Eosinophils 0.1 K/CMM 0.0 - 0.5 07/16 MH # /2014 [facility] HEMATOLOGY Monocytes # 0.5 K/CMM 0.0 - 0.8 07/16 /2013 [facility] HEMATOLOGY Segs-Bands # 4.8 K/CMM 1.5 - 8.1 07/16 /2013 [facility] HEMATOLOGY Eosinophils 1.8 % 0.0 - 4.0 07/16 /2013 [facility] HEMATOLOGY Lymphocytes 2.3 K/CMM 1.0 - 5.5 07/16 # /2013 [facility] HEMATOLOGY Basophils 1.4 % 0.0 - 1.0 07/16 /2013 [facility] HEMATOLOGY Monocytes 6.4 % 2.0 - 12.0 07/[address] [facility] Lymphocytes 29.6 % 20.0 - 07/16 40.0 /2013 [facility] HEMATOLOGY Segs 60.8 % 45.0 - 07/16 75.0 /[address] [facility] D-Dimer 0.27 ug/mL 07/16 3Interpretive Data: In DIC, quantitative D-Dimer is generally greater than U /2013 0.66 ug/mL FEU. Values of quantitative D-Dimer less than [facility] 0.40 ug/mL FEU have been reported to be associated with a low probability of deep vein thrombosis/pulmonary embolism. This test alone should not be used to rule out DVT/PE. HEMATOLOGY MPV 8.5 fL 7.4 - 10.4 07/[address] [facility] Hgb 15.4 g/dL 14.0 - 07/[address] [facility] RBC 5.51 M/CMM 4.70 - 07/16 MH 6.10 /2013 [facility] HEMATOLOGY WBC 7.9 K/CMM 3.7 - 10.4 07/16 [facility] HEMATOLOGY MCV 81.3 fL 80.0 - 07/16 94.0 /[address] [facility] MCHC 34.5 g/dL 32.0 - 07/16 MH 36.0 /[address] [facility] MCH 28.0 pg 27.0 - 07/[address] [facility] Hct 44.8 % 42.0 - 07/16 54.0 /2013 [facility] HEMATOLOGY RDW 13.6 % 11.5 - 07/16 14. [facility] HEMATOLOGY Platelet 255 K/CMM 133 - 450 07/16 [facility] Chest Chest 1view CHEST, ONE VIEW 07/16 - - [facility] HISTORY: Chest pain Read by: Sky Schmidt Date/time: 07/16/13 02:23 Electronically Signed by: Sky Schmidt MD 07/16/13 02:24 FINAL REPORT COMPARISON: 07/11/2013 FINDINGS: Moderate to severe cardiomegaly again noted. Heart shape suggests dilated cardiomyopathy or pericardial effusion. The lungs are clear. No significant pleural effusion. No pneumothorax. Osseous structures unremarkable. SL: 14 CARDIAC CK MB 1.4 ng/mL 0.5 - 3.6 07/11 ENZYMES [facility] CARDIAC Total CK 201 unit/L 12 - 191 07/11 EN[facility]ES [facility] CARDIAC Troponin-I null 0.00 - 07/11 ENZYMES 0.40 /2013 [facility] CARDIAC CK MB Index 0.7 0.0 - 2.5 07/11 ENZYMES [facility] CHEM PANEL A/G Ratio 1.1 0.7 - 1.6 07/11 [facility] CHEM PANEL Globulin 3.7 g/dL 2.0 - 4.0 07/11 [facility] CHEM PANEL B/C Ratio 19 6 - 25 07/11 [facility] CHEM PANEL AGAP 10.7 meq/L 10.0 - 07/11 20.0 [facility] CHEM PANEL AST 34 unit/L 0 - 37 07/11 [facility] CHEM PANEL Bili Total 0.6 mg/dL 0.2 - 1.3 07/11 [facility] CHEM PANEL Total 7.7 g/dL 6.4 - 8.4 07/11 Protein [facility] CHEM PANEL CO2 24 meq/L 24 - 32 07/11 [facility] CHEM PANEL Calcium Lvl 9.0 mg/dL 8.5 - 10.5 07/11 [facility] CHEM PANEL Sodium Lvl 137 meq/L 135 - 145 07/11 [facility] CHEM PANEL Potassium 3.7 meq/L 3.5 - 5.1 07/11 Lvl [facility] CHEM PANEL Chloride Lvl 106 meq/L 95 - 109 07/11 [facility] CHEM PANEL BUN 15 mg/dL 7 - 22 07/11 [facility] CHEM PANEL Creatinine 0.8 mg/dL 0.5 - 1.4 07/11 Lvl /2013 [facility] CHEM PANEL Alk Phos 86 unit/L 39 - 136 07/11 [facility] CHEM PANEL Glucose Lvl 252 mg/dL 70 - 99 07/11 2Interpretive Data: Adult reference range values reflect the clinical guidelines of the [place] [employer]. [facility] CHEM PANEL eGFR 113 07/11 1Result Comment: The eGFR is calculated using the CKD-EPI formula. In most young, healthy individuals the eGFR will be > 90 mL/min/1.73m2. The eGFR declines with age. An eGFR of 60-89 may be normal in mL/min/1.7 some populations, particularly the elderly, for whom the CKD-EPI formula has not been extensively validated. Use of the eGFR is not recommended in the following populations: [facility] 3m2 Individuals with unstable creatinine concentrations, including patients and those with serious co-morbid conditions. Patients with extremes in muscle mass or diet. The data above are obtained from the National Kidney Disease Education Program (NKDEP) which additionally recommends that when the eGFR is used in patients with extremes of body mass index for purposes of drug dosing, the eGFR should be multiplied by the estimated BMI. CHEM PANEL Albumin Lvl 4.0 g/dL 3.5 - 5.0 07/11 [facility] CHEM PANEL ALT 108 unit/L 0 - 65 07/11 [facility] HEMATOLOGY RDW 13.7 % 11.5 - 07/11 MH 14.5 [facility] HEMATOLOGY Hct 43.2 % 42.0 - 07/11 MH 54.0 [facility] HEMATOLOGY MCV 81.0 fL 80.0 - 07/11 94.0 [facility] HEMATOLOGY MCHC 34.7 g/dL 32.0 - 07/11 MH 36.0 /2013 [facility] HEMATOLOGY MCH 28.1 pg 27.0 - 07/11 MH 31.0 /2013 [facility] HEMATOLOGY Platelet 269 K/CMM 133 - 450 07/11 [facility] HEMATOLOGY MPV 8.2 fL 7.4 - 10.4 07/11 [facility] HEMATOLOGY RBC 5.33 M/CMM 4.70 - 07/11 MH 6.10 [facility] HEMATOLOGY Hgb 15.0 g/dL 14.0 - 07/11 MH 18.0 [facility] HEMATOLOGY WBC 8.1 K/CMM 3.7 - 10.4 07/11 /2013 [facility] HEMATOLOGY Basophils # 0.0 K/CMM 0.0 - 0.2 07/11 /2013 [facility] HEMATOLOGY Monocytes 6.6 % 2.0 - 12.0 07/11 /2013 [facility] HEMATOLOGY Segs 61.0 % 45.0 - 07/11 75.0 /2013 [facility] HEMATOLOGY Lymphocytes 29.8 % 20.0 - 07/11 40.0 /2013 [facility] HEMATOLOGY Eosinophils 2.2 % 0.0 - 4.0 07/11 /2013 [facility] HEMATOLOGY Basophils 0.4 % 0.0 - 1.0 07/11 [facility] HEMATOLOGY Eosinophils 0.2 K/CMM 0.0 - 0.5 07/11 # /2014 [facility] HEMATOLOGY Lymphocytes 2.4 K/CMM 1.0 - 5.5 07/11 # /2014 [facility] HEMATOLOGY Monocytes # 0.5 K/CMM 0.0 - 0.8 07/11 [facility] HEMATOLOGY Segs-Bands # 4.9 K/CMM 1.5 - 8.1 07/11 /2013 [facility] HEMATOLOGY INR 0.96 0.85 - 07/11 3Interpretive Data: RECOMMENDED RANGES FOR PROTIME INR: . 2.0-3.0 for most medical and surgical thromboembolic states. [facility] 2.5-3.5 for artificial heart valves and recurrent embolism. INR SHOULD BE USED ONLY FOR PATIENTS ON STABLE ANTICOAGULANT THERAPY. HEMATOLOGY PTT 31.7 s 22.9 - 07/11 4Interpretive 35.8 /2013 Data: Heparin [facility] Therapeutic Range: 57 - 92 Seconds HEMATOLOGY PT 12.7 s 12.0 - 07/11 14.7 /2014 [facility] Chest Chest 1view PROCEDURE: Chest 1view 07/11 - view /2013 - [facility] REASON FOR EXAM: CHEST PAIN AND SOB X 4 DAYS CLINICAL INFORMATION Chest pain Read by: Mark Anthony Mcneal Dictated Date/time: 07/11/13 01:37 Electronically Signed by: Mark Anthony Mcneal MD 07/11/13 01:39 FINAL REPORT COMPARISON: None. Enlargement of the cardiac silhouette is secondary to cardiomegaly or pericardial effusion much greater than expected for age. The pulmonary vasculature is normal. There are no effusions or pneumothorax. The osseous structures are grossly normal. SL: 14 BEDSIDE Gluc POC 302.0 65 - 110 02/14 HI 1Interpretive MH GLUCOSE [place] mg/dL /2010 Data: [facility] TESTING Upper Reportable Limit: 200 mg/dL. BEDSIDE Gluc POC 320.0 65 - 110 02/14 HI 2Interpretive MH GLUCOSE [place] mg/dL /2010 Data: [facility] TESTING Upper Reportable Limit: 200 mg/dL. BEDSIDE Gluc POC null 65 - 110 02/14 CRIT 3Interpretive MH GLUCOSE [place] /2010 Data: [facility] TESTING Upper Reportable Limit: 200 mg/dL. BEDSIDE Comment1 Notify 02/14 NA MH GLUCOSE RN/MD /2010 [facility] TESTING CHEMISTRY Calcium Lvl 9.3 mg/dL 8.5 - 10.5 02/14 Normal MH /2010 [facility] CHEMISTRY AGAP 15.4 meq/L 10.0 - 02/14 Normal 20.0 [facility] CHEMISTRY CO2 22.0 meq/L 24 - 32 02/14 LOW [facility] CHEMISTRY Chloride Lvl 90.0 meq/L 95 - 109 02/14 LOW [facility] CHEMISTRY Potassium 4.4 meq/L 3.5 - 5.1 02/14 Normal Lvl [facility] CHEMISTRY Sodium Lvl 123.0 135 - 145 02/14 LOW meq/L [facility] CHEMISTRY Creatinine 1.0 mg/dL 0.5 - 1.4 02/14 Normal Lvl [facility] CHEMISTRY BUN 12.0 mg/dL 7 - 22 02/14 Normal /2010 [facility] CHEMISTRY Glucose Lvl 725.0 02/14 CRIT 5Interpretive MH mg/dL /2010 Data: [facility] Reference Ranges : 0 - 7 days : 41 - 90 mg/dL7 days - 150 yrs : 70 - 99 mg/dL (fasting), based on the clinical recommendatio ns of the [place] [employer]. HEMATOLOGY Monocytes # 0.4 K/CMM 0.0 - 0.8 02/14 Normal MH /2010 [facility] HEMATOLOGY Basophils # 0.0 K/CMM 0.0 - 0.2 02/14 Normal MH /2010 [facility] HEMATOLOGY Eosinophils 0.1 K/CMM 0.0 - 0.5 02/14 Normal MH # /2010 [facility] HEMATOLOGY Segs 70.0 % 45.0 - 02/14 Normal MH 75.0 [facility] HEMATOLOGY Monocytes 5.3 % 2.0 - 12.0 02/14 Normal /2010 [facility] HEMATOLOGY Lymphocytes 23.4 % 20.0 - 02/14 Normal 40.0 /2010 [facility] HEMATOLOGY Basophils 0.3 % 0.0 - 1.0 02/14 Normal /2010 [facility] HEMATOLOGY Segs-Bands # 5.6 K/CMM 1.5 - 8.1 02/14 Normal /2010 [facility] HEMATOLOGY Eosinophils 1.0 % 0.0 - 4.0 02/14 Normal /2010 [facility] HEMATOLOGY Lymphocytes 1.9 K/CMM 1.0 - 5.5 02/14 Normal MH # /2010 [facility] HEMATOLOGY RBC 5.64 M/CMM 4.70 - 02/14 Normal MH 6.10 /2010 [facility] HEMATOLOGY WBC 8.1 K/CMM 3.7 - 10.4 02/14 Normal /2010 [facility] HEMATOLOGY MCH 29.3 pg 27.0 - 02/14 Normal 31.0 /2010 [facility] HEMATOLOGY MCV 81.3 fL 80.0 - 02/14 Normal 94.0 /2010 [facility] HEMATOLOGY Hct 45.9 % 42.0 - 02/14 Normal 54.0 /2010 [facility] HEMATOLOGY Hgb 16.5 g/dL 14.0 - 02/14 Normal 18.0 /2010 [facility] HEMATOLOGY Platelet 230.0 133 - 450 02/14 Normal K/CMM /2010 [facility] HEMATOLOGY RDW 13.3 % 11.5 - 02/14 Normal 14.5 /2010 [facility] HEMATOLOGY MCHC 36.1 g/dL 32.0 - 02/14 HI 36.0 /2010 [facility] HEMATOLOGY MPV 9.3 fL 7.4 - 10.4 02/14 Normal [facility] BEDSIDE Comment1 Notify 02/14 NA GLUCOSE RN/ /2010 [facility] TESTING Vital Signs Vital Sign Value Date Comments Source Temperature Oral (F) 98.1 F 07/03/2017 [facility] Heart Rate 75 07/03/2017 [facility] Systolic (mm Hg) 107 07/03/2017 [facility] Diastolic (mm Hg) 69 07/03/2017 [facility] Respitory Rate 16 07/03/2017 [facility] Systolic (mm Hg) 116 07/03/2017 [facility] Diastolic (mm Hg) 74 07/03/2017 [facility] Respitory Rate 16 07/03/2017 [facility] Heart Rate 78 07/03/2017 [facility] Temperature Oral (F) 97.7 F 07/03/2017 [facility] Heart Rate 72 07/03/2017 [facility] Systolic (mm Hg) 117 07/03/2017 MH [facility] Diastolic (mm Hg) 73 07/03/2017 [facility] Temperature Oral (F) 98.6 F 07/03/2017 [facility] Respitory Rate 16 07/03/2017 [facility] Height 167.64 cm 07/01/2017 [facility] Weight 95.909 07/01/2017 [facility] BMI Calculated 34.13 07/01/2017 [facility] Respitory Rate 20 07/01/[address] [facility] Heart Rate 80 07/01/[address] [facility] Temperature Oral (F) 98.1 F 07/01/[address] [facility] Systolic (mm Hg) 157 07/01/[address] [facility] Diastolic (mm Hg) 107 07/01/[address] [facility] Heart Rate 98 07/01/[address] [facility] Systolic (mm Hg) 151 07/01/[address] [facility] Diastolic (mm Hg) 119 07/01/[address] [facility] Respitory Rate 18 07/01/[address] [facility] Temperature Oral (F) 98.1 F 07/01/[address] [facility] Weight 96.004 07/01/[address] [facility] Systolic (mm Hg) 124 05/03/[address] [facility] Diastolic (mm Hg) 68 05/03/[address] [facility] Temperature Oral (F) 98.2 F 05/03/[address] [facility] Heart Rate 65 05/03/[address] [facility] Respitory Rate 16 05/03/[address] [facility] Systolic (mm Hg) 138 05/03/[address] [facility] Diastolic (mm Hg) 90 05/03/[address] [facility] Weight 109.091 05/03/[address] [facility] BMI Calculated 38.82 05/03/[address] [facility] Temperature Oral (F) 98.3 F 05/03/[address] [facility] Height 167.64 cm 05/03/[address] [facility] Respitory Rate 18 05/03/[address] [facility] Heart Rate 78 05/03/[address] [facility] Systolic (mm Hg) 136 05/03/[address] [facility] Diastolic (mm Hg) 92 05/03/[address] [facility] Temperature Oral (F) 97.8 F 10/11/2013 [facility] Diastolic (mm Hg) 78 10/11/2013 [facility] Heart Rate 70 10/11/2013 [facility] Systolic (mm Hg) 126 10/11/2013 [facility] Respitory Rate 16 10/11/2013 [facility] Heart Rate 67 10/10/2013 [facility] Diastolic (mm Hg) 80 10/10/2013 [facility] Systolic (mm Hg) 123 10/10/2013 [facility] Respitory Rate 16 10/10/2013 [facility] Systolic (mm Hg) 140 10/10/2013 [facility] Diastolic (mm Hg) 90 10/10/2013 [facility] Heart Rate 77 10/10/2013 [facility] Respitory Rate 16 10/10/2013 [facility] Weight 109.091 10/10/2013 [facility] BMI Calculated 38.82 10/10/2013 [facility] Height 167.64 cm 10/10/2013 [facility] Temperature Oral (F) 97.6 F 10/10/2013 [facility] Diastolic (mm Hg) 84 07/16/2013 [facility] Respitory Rate 18 07/16/2013 [facility] Systolic (mm Hg) 145 07/16/2013 [facility] Heart Rate 75 07/16/2013 [facility] Weight 109.091 07/16/2013 [facility] Height 167.64 cm 07/16/2013 [facility] BMI Calculated 38.82 07/16/2013 [facility] Temperature Oral (F) 97.9 F 07/16/2013 [facility] Respitory Rate 18 07/16/2013 [facility] Heart Rate 72 07/16/2013 [facility] Systolic (mm Hg) 153 07/16/2013 [facility] Diastolic (mm Hg) 97 07/16/2013 [facility] Heart Rate 68 07/11/2013 [facility] Temperature Oral (F) 98.2 F 07/11/2013 [facility] Respitory Rate 19 07/11/2013 [facility] Diastolic (mm Hg) 80 07/11/2013 [facility] Systolic (mm Hg) 127 07/11/2013 [facility] Temperature Oral (F) 98.4 F 07/11/2013 [facility] Diastolic (mm Hg) 86 07/11/2013 [facility] Systolic (mm Hg) 131 07/11/2013 [facility] Heart Rate 64 07/11/2013 [facility] Respitory Rate 18 07/11/2013 [facility] Weight 109.091 07/11/2013 [facility] Respitory Rate 18 07/11/2013 [facility] Heart Rate 71 07/11/2013 [facility] Diastolic (mm Hg) 96 07/11/2013 [facility] Systolic (mm Hg) 151 07/11/2013 [facility] Temperature Oral (F) 98.4 F 07/11/2013 [facility] Temperature Oral (F) 98.5 F 02/14/2011 [facility] Systolic (mm Hg) 156.0 02/14/2011 [facility] Diastolic (mm Hg) 84.0 02/14/2011 [facility] Heart Rate 80.0 02/14/2011 [facility] Respitory Rate 18.0 02/14/2011 [facility] Respitory Rate 18.0 02/14/2011 [facility] Heart Rate 78.0 02/14/2011 [facility] Systolic (mm Hg) 168.0 02/14/2011 [facility] Diastolic (mm Hg) 93.0 02/14/2011 [facility] Diastolic (mm Hg) 81.0 02/14/2011 [facility] Heart Rate 89.0 02/14/2011 [facility] Respitory Rate 18.0 02/14/2011 [facility] Systolic (mm Hg) 178.0 02/14/2011 [facility] Temperature Oral (F) 98.3 F 02/14/2011 [facility] Height 165.1 cm 02/14/2011 [facility] Weight 113.636 02/14/2011 [facility] Encounters Location Location Encounter Encounter Reason Attending ADM DC Status Source Details Type Number For Provider Date Date Visit Emergency [id number] MATTHEW 02/13 02/14 Active [facility] 0 NRIAGU /2010 [facility] OBS [id number] Periyanan 07/11 07/11 [facility] EC Emergency [id number] Cande 07/16 07/16 [facility] Center 2 Nora [facility] EC Emergency [id number] Yvon 10/10 10/11 [facility] Center 3 Vielka /2013 [facility] Emergency [id number] Zion 05/03 05/03 Dominic 4 Maya Jr /2016 [facility] Emergency [id number] Qamar 07/01 07/01 Dominic 5 Ady /2017 [facility] Inpatient [id number] Palur 07/01 07/03 Dominic 2 Tere /2017 [facility] Procedures Procedure Code Date Perfomer Comments Source Closure of [id number] [facility] colostomy Hernia repair [id number] [facility] Closure of [id number] Briseida colostomy Hernia repair [id number] [facility]
--- OUTSIDE RECORDS SUMMARY | 2018-02-12 11:15 | XMS REPORT | Summary of Care ---
:1975 Author Care Team Providers Name Role Phone Unavailable Primary Care Physician Unavailable Encounter [facility] Mackenzie(CALE) [id number] Date(s): 07/11/13 - 07/11/13 [facility] [address] Discharge Disposition: Home Physician Attending: Dorcas Mayberry Physician Admitting: Dorcas Mayberry Reason for Visit CHEST PAIN Vital Signs Most recent to oldest 1 2 3 [Reference Range]: Temperature Oral [96.4-99.1 98.2 DegF 98.4 DegF 98.4 DegF DegF] (07/11/13 4:00 AM) (07/11/13 1:20 AM) (07/11/13 12:07 AM) Systolic Blood Pressure 127 mmHg 131 mmHg 151 mmHg [90-140 mmHg] (07/11/13 4:00 AM) (07/11/13 1:20 AM) *HI* (07/11/13 12:07 AM) Diastolic Blood Pressure 80 mmHg 86 mmHg 96 mmHg [60-90 mmHg] (07/11/13 4:00 AM) (07/11/13 1:20 AM) *HI* (07/11/13 12:07 AM) Respiratory Rate [14-20 19 BRMIN 18 BRMIN 18 BRMIN BRMIN] (07/11/13 4:00 AM) (07/11/13 1:20 AM) (07/11/13 12:07 AM) Peripheral Pulse Rate [60-100 68 bpm 64 bpm 71 bpm bpm] (07/11/13 4:00 AM) (07/11/13 1:20 AM) (07/11/13 12:07 AM) Weight 109.091 kg (07/11/13 12:07 AM) Problem List Condition Effective Dates Status Health Status Informant Diverticulitis(Confirmed) Resolved DM (diabetes mellitus)(Confirmed) Resolved Obesity(Confirmed) Resolved Allergies, Adverse Reactions, Alerts Substance Reaction Severity Status morphine Active Medications aspirin 324 mg, Route: PO, ONCE, Dosing Weight 109.091, kg, Priority: STAT, Start date: 07/11/13 0:49:00, Stop date: 07/11/13 0:49:00 Start Date: 07/11/13 Stop Date: 07/11/13 Status: CompletedglipiZIDE 10 mg oral tablet 10 mg=1 tab, PO, Daily, # 30 tab, 0 Refill(s) Start Date: 07/11/13 Status: OrderedmetFORMIN 500 mg oral tablet 500 mg=1 tab, PO, BID, # 30 tab, 0 Refill(s) Start Date: 07/11/13 Status: OrderedSaline Flush 0.9% 5 mL, Route: IVP, Drug Form: INJ, Dosing Weight 109.091, kg, Q8H, PRN Line Flush , Start date: 07/11/13 0:49:00, Duration: 30 day, Stop date: 08/10/13 0:48:00, Administer at least once every 8 hours Special Instructions: Administer at least once every 8 hours Notes: Same as: BD Posiflush Sterile Start Date: 07/11/13 Stop Date: 07/11/13 Status: Discontinued Results ELECTROLYTES Most recent to oldest [Reference Range]: 1 Sodium Lvl [135-145 mEq/L] 137 mEq/L (07/11/13 1:16 AM) Potassium Lvl [3.5-5.1 mEq/L] 3.7 mEq/L (07/11/13 1:16 AM) Chloride Lvl [95-109 mEq/L] 106 mEq/L (07/11/13 1:16 AM) CO2 [24-32 mEq/L] 24 mEq/L (07/11/13 1:16 AM) AGAP [10.0-20.0 mEq/L] 10.7 mEq/L (07/11/13 1:16 AM) CHEM PANEL Most recent to oldest [Reference Range]: 1 Creatinine Lvl [0.5-1.4 mg/dL] 0.8 mg/dL (07/11/13 1:16 AM) eGFR 113 mL/min/1.73m2 1 *NA* (07/11/13 1:16 AM) BUN [7-22 mg/dL] 15 mg/dL (07/11/13 1:16 AM) B/C Ratio [6-25] 19 (07/11/13 1:16 AM) Glucose Lvl [70-99 mg/dL] 252 mg/dL 2 *HI* (07/11/13 1:16 AM) Total Protein [6.4-8.4 g/dL] 7.7 g/dL (07/11/13 1:16 AM) Albumin Lvl [3.5-5.0 g/dL] 4.0 g/dL (07/11/13 1:16 AM) Globulin [2.0-4.0 g/dL] 3.7 g/dL (07/11/13 1:16 AM) A/G Ratio [0.7-1.6] 1.1 (07/11/13 1:16 AM) Calcium Lvl [8.5-10.5 mg/dL] 9.0 mg/dL (07/11/13 1:16 AM) ALT [0-65 unit/L] 108 unit/L *HI* (07/11/13 1:16 AM) AST [0-37 unit/L] 34 unit/L (07/11/13 1:16 AM) Alk Phos [39-136 unit/L] 86 unit/L (07/11/13 1:16 AM) Bili Total [0.2-1.3 mg/dL] 0.6 mg/dL (07/11/13 1:16 AM) 1Result Comment: The eGFR is calculated using the CKD-EPI formula. In most young , healthy individualsthe eGFR will be >90 mL/min/1.73m2. The eGFR declines with age. An eGFR of 60-89 may be normal in some populations, particularly the elderly, for whom the CKD-EPI formula has not been extensively validated. Use of the eGFR is not recommended in the following populations: Individuals with unstable creatinine concentrations, including patients and those with serious co-morbid conditions. Patients with extremes in muscle mass or diet. The data above are obtained from the National Kidney Disease Education Program ( NKDEP) which additionally recommends that when the eGFR is used in patients with extremes of body mass index for purposesof drug dosing, the eGFR should be multiplied by the estimated BMI.2Interpretive Data: Adult reference range values reflect the clinical guidelines of the [place] [employer].CARDIAC ENZYMES Most recent to oldest [Reference Range]: 1 Total CK [12-191 unit/L] 201 unit/L *HI* (07/11/13 1:16 AM) CK MB [0.5-3.6 ng/mL] 1.4 ng/mL (07/11/13 1:16 AM) CK MB Index [0.0-2.5] 0.7 (07/11/13 1:16 AM) Troponin-I [0.00-0.40 ng/mL] <0.02 ng/mL (07/11/13 1:16 AM) HEMATOLOGY Most recent to oldest [Reference Range]: 1 WBC [3.7-10.4 K/CMM] 8.1 K/CMM (07/11/13 1:16 AM) RBC [4.70-6.10 M/CMM] 5.33 M/CMM (07/11/13 1:16 AM) Hgb [14.0-18.0 g/dL] 15.0 g/dL (07/11/13 1:16 AM) Hct [42.0-54.0 %] 43.2 % (07/11/13 1:16 AM) MCV [80.0-94.0 fL] 81.0 fL (07/11/13 1:16 AM) MCH [27.0-31.0 pg] 28.1 pg (07/11/13 1:16 AM) MCHC [32.0-36.0 g/dL] 34.7 g/dL (07/11/13 1:16 AM) RDW [11.5-14.5 %] 13.7 % (07/11/13 1:16 AM) Platelet [133-450 K/CMM] 269 K/CMM (07/11/13 1:16 AM) MPV [7.4-10.4 fL] 8.2 fL (07/11/13 1:16 AM) Segs [45.0-75.0 %] 61.0 % (07/11/13 1:16 AM) Lymphocytes [20.0-40.0 %] 29.8 % (07/11/13 1:16 AM) Monocytes [2.0-12.0 %] 6.6 % (07/11/13 1:16 AM) Eosinophils [0.0-4.0 %] 2.2 % (07/11/13 1:16 AM) Basophils [0.0-1.0 %] 0.4 % (07/11/13 1:16 AM) Segs-Bands # [1.5-8.1 K/CMM] 4.9 K/CMM (07/11/13 1:16 AM) Lymphocytes # [1.0-5.5 K/CMM] 2.4 K/CMM (07/11/13 1:16 AM) Monocytes # [0.0-0.8 K/CMM] 0.5 K/CMM (07/11/13 1:16 AM) Eosinophils # [0.0-0.5 K/CMM] 0.2 K/CMM (07/11/13 1:16 AM) Basophils # [0.0-0.2 K/CMM] 0.0 K/CMM (07/11/13 1:16 AM) PT [12.0-14.7 seconds] 12.7 seconds (07/11/13 1:16 AM) INR [0.85-1.17] 0.96 3 (07/11/13 1:16 AM) PTT [22.9-35.8 seconds] 31.7 seconds 4 (07/11/13 1:16 AM) 3Interpretive Data: RECOMMENDED RANGES FOR PROTIME INR: 2.0-3.0 for most medical and surgical thromboembolic states. 2.5-3.5 for artificial heart valves and recurrent embolism. INR SHOULD BE USED ONLY FOR PATIENTS ON STABLE ANTICOAGULANT THERAPY.4Interpretive Data: Heparin Therapeutic Range: 57 - 92 Seconds Medications Administered During Your Visit No data available for this section Immunizations No data available for this section Procedures Procedure Type Body Site Date of Procedure Related Diagnosis Closure of colostomy
--- OUTSIDE RECORDS SUMMARY | 2018-02-12 11:15 | XMS REPORT | Summary of Care ---
:1975 Author Care Team Providers Name Role Phone Unavailable Primary Care Physician Unavailable Encounter [facility]) [id number] Date(s): 07/16/13 - 07/16/13 [facility] [address] [address] - [facility] Discharge Diagnosis: Costochondritis, Chest wall pain Discharge Disposition: Home Physician Attending: Cande Melendez Reason for Visit CHEST PAIN Vital Signs Most recent to oldest [Reference Range]: 1 2 Height 167.64 cm (07/16/13 1:19 AM) Temperature Oral [96.4-99.1 DegF] 97.9 DegF (07/16/13 1:19 AM) Systolic Blood Pressure [90-140 mmHg] 145 mmHg 153 mmHg *HI* *HI* (07/16/13 3:12 AM) (07/16/13 1:19 AM) Diastolic Blood Pressure [60-90 mmHg] 84 mmHg 97 mmHg (07/16/13 3:12 AM) *HI* (07/16/13 1:19 AM) Respiratory Rate [14-20 BRMIN] 18 BRMIN 18 BRMIN (07/16/13 3:12 AM) (07/16/13 1:19 AM) Peripheral Pulse Rate [60-100 bpm] 75 bpm 72 bpm (07/16/13 3:12 AM) (07/16/13 1:19 AM) Weight 109.091 kg (07/16/13 1:19 AM) Body Mass Index 38.82 m2 (07/16/13 1:19 AM) Problem List Condition Effective Dates Status Health Status Informant Diverticulitis(Confirmed) Resolved DM (diabetes mellitus)(Confirmed) Resolved Obesity(Confirmed) Resolved Allergies, Adverse Reactions, Alerts Substance Reaction Severity Status morphine Active Medications aspirin 325 mg tablet 325 mg, Route: PO, Drug form: TAB, ONCE, Dosing Weight 109.091, kg, Priority: STAT, Start date: 07/16/13 1:27:00, Stop date: 07/16/13 1:27:00 Start Date: 07/16/13 Stop Date: 07/16/13 Status: Completedindomethacin 50 mg oral capsule 50 mg=1 cap, PO, Q8H, # 30 cap, 0 Refill(s) Start Date: 07/16/13 Stop Date: 07/26/13 Status: Orderedketorolac 30 mg, Route: IVP, Drug form: INJ, ONCE, Dosing Weight 109.091, kg, Priority: STAT, Start date: 07/16/13 1:27:00, Stop date: 07/16/13 1:27:00 Start Date: 07/16/13 Stop Date: 07/16/13 Status: CompletedSaline Flush 0.9% 5 ml, Route: IVP, Drug Form: INJ, Dosing Weight 109.091, kg, PRN, PRN Line Flush , Start date: 07/16/13 1:27:00, Duration: 30 day, Stop date: 08/15/13 1:26:00 Notes: (Same as: BD Posiflush) Start Date: 07/16/13 Stop Date: 07/16/13 Status: Discontinued Results ELECTROLYTES Most recent to oldest [Reference Range]: 1 Sodium Lvl [135-145 mEq/L] 137 mEq/L (07/16/13 1:40 AM) Potassium Lvl [3.5-5.1 mEq/L] 4.0 mEq/L (07/16/13 1:40 AM) Chloride Lvl [95-109 mEq/L] 104 mEq/L (07/16/13 1:40 AM) CO2 [24-32 mEq/L] 26 mEq/L (07/16/13 1:40 AM) AGAP [10.0-20.0 mEq/L] 11.0 mEq/L (07/16/13 1:40 AM) CHEM PANEL Most recent to oldest [Reference Range]: 1 Creatinine Lvl [0.5-1.4 mg/dL] 0.9 mg/dL (07/16/13 1:40 AM) eGFR 109 mL/min/1.73m2 1 *NA* (07/16/13 1:40 AM) BUN [7-22 mg/dL] 13 mg/dL (07/16/13 1:40 AM) B/C Ratio [6-25] 14 (07/16/13 1:40 AM) Glucose Lvl [70-99 mg/dL] 243 mg/dL 2 *HI* (07/16/13 1:40 AM) Total Protein [6.4-8.4 g/dL] 8.2 g/dL (07/16/13 1:40 AM) Albumin Lvl [3.5-5.0 g/dL] 4.3 g/dL (07/16/13 1:40 AM) Globulin [2.0-4.0 g/dL] 3.9 g/dL (07/16/13 1:40 AM) A/G Ratio [0.7-1.6] 1.1 (07/16/13 1:40 AM) Calcium Lvl [8.5-10.5 mg/dL] 9.5 mg/dL (07/16/13 1:40 AM) ALT [0-65 unit/L] 102 unit/L *HI* (07/16/13 1:40 AM) AST [0-37 unit/L] 27 unit/L (07/16/13 1:40 AM) Alk Phos [39-136 unit/L] 116 unit/L (07/16/13 1:40 AM) Bili Total [0.2-1.3 mg/dL] 0.5 mg/dL (07/16/13 1:40 AM) 1Result Comment: The eGFR is calculated [...] values reflect the clinical guidelines of the [place] [employer].CARDIAC ENZYMES Most recent to oldest [Reference Range]: 1 Total CK [12-191 unit/L] 216 unit/L *HI* (07/16/13 1:40 AM) CK MB [0.5-3.6 ng/mL] 1.7 ng/mL (07/16/13 1:40 AM) CK MB Index [0.0-2.5] 0.8 (07/16/13 1:40 AM) Troponin-I [0.00-0.40 ng/mL] <0.02 ng/mL (07/16/13 1:40 AM) HEMATOLOGY Most recent to oldest [Reference Range]: 1 WBC [3.7-10.4 K/CMM] 7.9 K/CMM (07/16/13 1:40 AM) RBC [4.70-6.10 M/CMM] 5.51 M/CMM (07/16/13 1:40 AM) Hgb [14.0-18.0 g/dL] 15.4 g/dL (07/16/13 1:40 AM) Hct [42.0-54.0 %] 44.8 % (07/16/13 1:40 AM) MCV [80.0-94.0 fL] 81.3 fL (07/16/13 1:40 AM) MCH [27.0-31.0 pg] 28.0 pg (07/16/13 1:40 AM) MCHC [32.0-36.0 g/dL] 34.5 g/dL (07/16/13 1:40 AM) RDW [11.5-14.5 %] 13.6 % (07/16/13 1:40 AM) Platelet [133-450 K/CMM] 255 K/CMM (07/16/13 1:40 AM) MPV [7.4-10.4 fL] 8.5 fL (07/16/13 1:40 AM) Segs [45.0-75.0 %] 60.8 % (07/16/13 1:40 AM) Lymphocytes [20.0-40.0 %] 29.6 % (07/16/13 1:40 AM) Monocytes [2.0-12.0 %] 6.4 % (07/16/13 1:40 AM) Eosinophils [0.0-4.0 %] 1.8 % (07/16/13 1:40 AM) Basophils [0.0-1.0 %] 1.4 % *HI* (07/16/13 1:40 AM) Segs-Bands # [1.5-8.1 K/CMM] 4.8 K/CMM (07/16/13 1:40 AM) Lymphocytes # [1.0-5.5 K/CMM] 2.3 K/CMM (07/16/13 1:40 AM) Monocytes # [0.0-0.8 K/CMM] 0.5 K/CMM (07/16/13 1:40 AM) Eosinophils # [0.0-0.5 K/CMM] 0.1 K/CMM (07/16/13 1:40 AM) Basophils # [0.0-0.2 K/CMM] 0.1 K/CMM (07/16/13 1:40 AM) D-Dimer 0.27 ug/mL FEU 3 *NA* (07/16/13 1:40 AM) 3Interpretive Data: In DIC, quantitative D-Dimer is generally greater than 0.66 ug/mL FEU. Values of quantitative D-Dimer less than 0.40 ug/mL FEU have been reported to be associated with a low probability of deep vein thrombosis/pulmonary embolism. This test alone should not be used to rule out DVT/PE. Medications Administered During Your Visit No data available for this section Immunizations No data available for this section
--- OUTSIDE RECORDS SUMMARY | 2018-02-12 11:15 | XMS REPORT | CCD ---
:1975 Author Organization [facility] Care Team Providers Name Role Phone SHAQUILLE Vargas Consulting Provider Unavailable Ken Fonseca Consulting Provider [phone] Mary Eid Consulting Provider [phone] Vinita Estes Consulting Provider Unavailable Niall Miranda Consulting Provider Unavailable PCP, None Consulting Provider Unavailable Ronel Kennedy Consulting Provider ChartServer, Login Consulting Provider Unavailable Michele Yu Consulting Provider [phone] Tatiana Jean Baptiste Consulting Provider Unavailable Megan Rouse Consulting Provider Unavailable Yvon Abad Consulting Provider SYSTEM, SYSTEM Consulting Provider Unavailable Unavailable Primary Care Provider Unavailable Darin Thomas Consulting Provider Ly Montgomery Consulting Provider Unavailable Amari Madden Consulting Provider Unavailable Allergies, Adverse Reactions, Alerts Substance Reaction Status morphine ?? Active Medications Medication Instructions Start Date End Date Status Insulin regular 6 unit, Route: IV, ONCE, 02/14/2011 02/14/2011 Completed Start date: 02/14/11 4:00:00, Stop date: 02/14/11 4:00:00 Insulin regular 10 unit, Route: IVP, ONCE, 02/14/2011 02/14/2011 Completed Priority: STAT, Start date: 02/14/11 0:49:00, Stop date: 02/14/11 0:49:00 Insulin regular 10 unit, Route: SUB-Q, 02/13/2011 02/13/2011 Completed ONCE, Priority: STAT, Start date: 02/13/11 23:25:00, Stop date: 02/13/11 23:25:00 Insulin regular 10 unit, Route: IVP, ONCE, 02/13/2011 02/13/2011 Completed Priority: STAT, Start date: 02/13/11 23:25:00, Stop date: 02/13/11 23:25:00 Sodium Chloride 0.9% 1,000 mL, Rate: 1,000 02/13/2011 02/14/2011 Completed (Bolus) IV 1000 mL ml/hr, Infuse over: 1 hr, Route: IV, Total Volume: 1,000, Bolus Dose, Priority: STAT, Start date: 02/13/11 23:24:00, Duration: 1 doses or times, Stop date: 02/14/11 0:23:00 Sodium Chloride 0.9% 1,000 mL, Rate: 1,000 02/13/2011 02/13/2011 Completed (Bolus) IV 1000 mL ml/hr, Infuse over: 1 hr, Route: IV, Total Volume: 1,000, Bolus Dose, Priority: STAT, Start date: 02/13/11 23:24:00, Duration: 1 doses or times, Stop date: 02/14/11 0:23:00 metFORmin 500 mg oral 500 mg, 1 tab, PO, BID, 60 02/14/2011 ?? Ordered tablet tab, Substitution Allowed Sodium Chloride 0.9% 1,000 mL, Rate: 1,000 02/14/2011 02/14/2011 Completed (Bolus) IV 1000 mL ml/hr, Infuse over: 1 hr, Route: IV, Total Volume: 1,000, Bolus Dose, Priority: STAT, Start date: 02/14/11 2:51:00, Duration: 1 doses or times, Stop date: 02/14/11 3:50:00 metFORmin 500 mg oral 500 mg, 1 tab, Route: PO, 02/14/2011 02/14/2011 Discontinued tablet, extended release Drug form: ERTAB, Daily, Start date: 02/14/11 4:16:00, Duration: 30 day, Stop date: 03/15/11 9:00:00 Vital Signs Most recent to oldest 1 2 3 [Reference Range]: Height 165.10 cm ? (02/13/2011 22:58:00) ?? Temperature Oral 98.5 DegF 98.3 DegF ?? [96.4-99.1 DegF] (02/14/2011 04:42:00) ?? (02/13/2011 22:58:00) ?? Systolic Blood Pressure 156 mmHg 168 mmHg 178 mmHg [90-140 mmHg] *HI* *HI* *HI* (02/14/2011 04:42:00) ?? (02/14/2011 03:30:00) ?? (02/14/2011 01:33:00) ?? Diastolic Blood Pressure 84 mmHg 93 mmHg 81 mmHg [60-90 mmHg] (02/14/2011 04:42:00) ?? *HI* (02/14/2011 01:33:00) ?? (02/14/2011 03:30:00) ?? Respiratory Rate [14-20 18 BRMIN 18 BRMIN 18 BRMIN BRMIN] (02/14/2011 04:42:00) ?? (02/14/2011 03:30:00) ?? (02/14/2011 01:33: 00) ?? Peripheral Pulse Rate 80 bpm 78 bpm 89 bpm [60-100 bpm] (02/14/2011 04:42:00) ?? (02/14/2011 03:30:00) ?? (02/14/2011 01:33:00) ?? Weight 113.636 kg ? (02/13/2011 22:58:00) ?? Results BEDSIDE GLUCOSE TESTING Most recent to oldest 1 2 3 [Reference Range]: Gluc POC Lifscn [65-110 302 mg/dL 1 320 mg/dL 2 >400 mg/dL 3 mg/dL] *HI* *HI* *CRIT* (02/14/2011 03:58:00) ?? (02/14/2011 02:46:00) ?? (02/14/2011 01:24:00) ?? Comment1 Notify RN/MD Notify RN/MD ?? *NA* *NA* (02/14/2011 00:38:00) ?? (02/13/2011 23:02:00) ?? 1Interpretive Data: Upper Reportable Limit: 200 mg/dL.2Interpretive Data: Upper Reportable Limit: 200 mg/dL.3Interpretive Data: Upper Reportable Limit: 200 mg/dL.CHEMISTRY Most recent to oldest [Reference Range]: 1 2 3 Sodium Lvl [135-145 mEq/L] 123 mEq/L ? *LOW* (02/13/2011 23:20:00) ?? Potassium Lvl [3.5-5.1 mEq/L] 4.4 mEq/L ? (02/13/2011 23:20:00) ?? Chloride Lvl [95-109 mEq/L] 90 mEq/L ? *LOW* (02/13/2011 23:20:00) ?? CO2 [24-32 mEq/L] 22 mEq/L ? *LOW* (02/13/2011 23:20:00) ?? AGAP [10.0-20.0 mEq/L] 15.4 mEq/L ? (02/13/2011 23:20:00) ?? Creatinine Lvl [0.5-1.4 mg/dL] 1.0 mg/dL ? (02/13/2011 23:20:00) ?? BUN [7-22 mg/dL] 12 mg/dL ? (02/13/2011 23:20:00) ?? Glucose Lvl 725 mg/dL 4,??5 ? *CRIT* (02/13/2011 23:20:00) ?? Calcium Lvl [8.5-10.5 mg/dL] 9.3 mg/dL ? (02/13/2011 23:20:00) ?? 4Result Comment: Critical Result(s) called to Ashtyn at 02/14/2011 0:36 by_.tas Read back OK.5Interpretive Data: Reference Ranges : 0 - 7 days : 41 - 90 mg/dL7 days - 150 yrs : 70 - 99 mg/dL (fasting), based on the clinical recommendations of the [place] [employer].HEMATOLOGY Most recent to oldest [Reference Range]: 1 2 3 WBC [3.7-10.4 K/CMM] 8.1 K/CMM ? (02/13/2011 23:20:00) ?? RBC [4.70-6.10 M/CMM] 5.64 M/CMM ? (02/13/2011 23:20:00) ?? Hgb [14.0-18.0 g/dL] 16.5 g/dL ? (02/13/2011 23:20:00) ?? Hct [42.0-54.0 %] 45.9 % ? (02/13/2011 23:20:00) ?? MCV [80.0-94.0 fL] 81.3 fL ? (02/13/2011 23:20:00) ?? MCH [27.0-31.0 pg] 29.3 pg ? (02/13/2011 23:20:00) ?? MCHC [32.0-36.0 g/dL] 36.1 g/dL ? *HI* (02/13/2011 23:20:00) ?? RDW [11.5-14.5 %] 13.3 % ? (02/13/2011 23:20:00) ?? Platelet [133-450 K/CMM] 230 K/CMM ? (02/13/2011 23:20:00) ?? MPV [7.4-10.4 fL] 9.3 fL ? (02/13/2011 23:20:00) ?? Segs [45.0-75.0 %] 70.0 % ? (02/13/2011 23:20:00) ?? Lymphocytes [20.0-40.0 %] 23.4 % ? (02/13/2011 23:20:00) ?? Monocytes [2.0-12.0 %] 5.3 % ? (02/13/2011 23:20:00) ?? Eosinophils [0.0-4.0 %] 1.0 % ? (02/13/2011 23:20:00) ?? Basophils [0.0-1.0 %] 0.3 % ? (02/13/2011 23:20:00) ?? Segs-Bands # [1.5-8.1 K/CMM] 5.6 K/CMM ? (02/13/2011 23:20:00) ?? Lymphocytes # [1.0-5.5 K/CMM] 1.9 K/CMM ? (02/13/2011 23:20:00) ?? Monocytes # [0.0-0.8 K/CMM] 0.4 K/CMM ? (02/13/2011 23:20:00) ?? Eosinophils # [0.0-0.5 K/CMM] 0.1 K/CMM ? (02/13/2011 23:20:00) ?? Basophils # [0.0-0.2 K/CMM] 0.0 K/CMM ? (02/13/2011 23:20:00) ??
--- OUTSIDE RECORDS SUMMARY | 2018-02-12 11:15 | XMS REPORT | Summary of Care ---
:1975 Author Care Team Providers Name Role Phone Unavailable Primary Care Physician Unavailable Encounter [facility]) [id number] Date(s): 10/10/13 - 10/10/13 [facility] [address] Discharge Disposition: DC[facility] to [facility] Physician Attending: Yvon Vora MD Reason for Visit ABDOMINAL PAIN Vital Signs Most recent to oldest 1 2 3 [Reference Range]: Height 167.64 cm (10/10/13 2:29 PM) Temperature Oral [96.4-99.1 97.8 DegF 97.6 DegF DegF] (10/10/13 8:06 PM) (10/10/13 2:29 PM) Systolic Blood Pressure [90-140 126 mmHg 123 mmHg 140 mmHg mmHg] (10/10/13 8:06 PM) (10/10/13 6:30 PM) (10/10/13 6:27 PM) Diastolic Blood Pressure [60-90 78 mmHg 80 mmHg 90 mmHg mmHg] (10/10/13 8:06 PM) (10/10/13 6:30 PM) (10/10/13 6:27 PM) Respiratory Rate [14-20 BRMIN] 16 BRMIN 16 BRMIN 16 BRMIN (10/10/13 8:06 PM) (10/10/13 6:30 PM) (10/10/13 6:27 PM) Peripheral Pulse Rate [60-100 70 bpm 67 bpm 77 bpm bpm] (10/10/13 8:06 PM) (10/10/13 6:30 PM) (10/10/13 6:27 PM) Weight 109.091 kg (10/10/13 2:29 PM) Body Mass Index 38.82 m2 (10/10/13 2:29 PM) Problem List Condition Effective Dates Status Health Status Informant Diverticulitis(Confirmed) Resolved DM (diabetes mellitus)(Confirmed) Resolved Obesity(Confirmed) Resolved Allergies, Adverse Reactions, Alerts Substance Reaction Severity Status morphine Active Medications Dilaudid 0.5 mg, Route: IV, ONCE, Dosing Weight 109.091, kg, Start date: 10/10/13 15:52: 00, Stop date: 10/10/13 15:52:00 Start Date: 10/10/13 Stop Date: 10/10/13 Status: CompletedDilaudid 1 mg, Route: IV, ONCE, Dosing Weight 109.091, kg, Start date: 10/10/13 14:42:00 , Stop date: 10/10/1413:42:00 Start Date: 10/10/13 Stop Date: 10/10/13 Status: CompletedDilaudid 0.5 mg, Route: IV, ONCE, Dosing Weight 109.091, kg, Start date: 10/10/13 18:17: 00, Stop date: 10/10/13 18:17:00 Start Date: 10/10/13 Stop Date: 10/10/13 Status: CompletedDilaudid 1 mg, Route: IV, ONCE, Dosing Weight 109.091, kg, Start date: 10/10/13 19:20:00 , Stop date: 10/10/1418:20:00 Start Date: 10/10/13 Stop Date: 10/10/13 Status: Completednormal saline 0.9% IV 1000 mL 1,000 mL, Rate: 1,000 ml/hr, Infuse over: 1 hr, Route: IV, Dosing Weight 109.091 kg, Total Volume: 1,000, Priority: STAT, Start date: 10/10/13 14:41:00, Duration: 1 doses or times, Stop date: 10/10/13 15:40:00 Start Date: 10/10/13 Stop Date: 10/10/13 Status: CompletedZofran 4 mg, Route: IVP, Drug form: INJ, ONCE, Dosing Weight 109.091, kg, Priority: STAT, Start date: 10/10/13 14:40:00, Stop date: 10/10/13 14:40:00 Start Date: 10/10/13 Stop Date: 10/10/13 Status: Completed Results ELECTROLYTES Most recent to oldest [Reference Range]: 1 Sodium Lvl [135-145 mEq/L] 140 mEq/L (10/10/13 2:59 PM) Potassium Lvl [3.5-5.1 mEq/L] 3.9 mEq/L (10/10/13 2:59 PM) Chloride Lvl [95-109 mEq/L] 109 mEq/L (10/10/13 2:59 PM) CO2 [24-32 mEq/L] 24 mEq/L (10/10/13 2:59 PM) AGAP [10.0-20.0 mEq/L] 10.9 mEq/L (10/10/13 2:59 PM) CHEM PANEL Most recent to oldest [Reference Range]: 1 Creatinine Lvl [0.5-1.4 mg/dL] 0.7 mg/dL (10/10/13 2:59 PM) eGFR 118 mL/min/1.73m2 1 *NA* (10/10/13 2:59 PM) BUN [7-22 mg/dL] 12 mg/dL (10/10/13 2:59 PM) B/C Ratio [6-25] 17 (10/10/13 2:59 PM) Glucose Lvl [70-99 mg/dL] 147 mg/dL 2 *HI* (10/10/13 2:59 PM) Total Protein [6.4-8.4 g/dL] 7.3 g/dL (10/10/13 2:59 PM) Albumin Lvl [3.5-5.0 g/dL] 3.7 g/dL (10/10/13 2:59 PM) Globulin [2.0-4.0 g/dL] 3.6 g/dL (10/10/13 2:59 PM) A/G Ratio [0.7-1.6] 1.0 (10/10/13 2:59 PM) Calcium Lvl [8.5-10.5 mg/dL] 8.8 mg/dL (10/10/13 2:59 PM) ALT [0-65 unit/L] 106 unit/L *HI* (10/10/13 2:59 PM) AST [0-37 unit/L] 40 unit/L *HI* (10/10/13 2:59 PM) Alk Phos [39-136 unit/L] 80 unit/L (7/12/14 2:59 PM) Bili Total [0.2-1.3 mg/dL] 1.0 mg/dL (10/10/13 2:59 PM) Amylase Lvl [25-115 unit/L] 23 unit/L *LOW* (10/10/13 2:59 PM) Lipase Lvl [73-393 unit/L] 54 unit/L *LOW* (10/10/13 2:59 PM) 1Result Comment: The eGFR is calculated using [...] values reflect the clinical guidelines of the [place] [employer].URINE AND STOOL Most recent to oldest [Reference Range]: 1 UA Turbidity [Clear] Clear (10/10/13 3:25 PM) UA Color [Yellow] Yellow *NA* (10/10/13 3:25 PM) UA pH [5.0-8.0] 5.5 (10/10/13 3:25 PM) UA Spec Grav [<=1.030] 1.025 (10/10/13 3:25 PM) UA Glucose [Negative] Negative (10/10/13 3:25 PM) UA Blood [Negative] Trace *ABN* (10/10/13 3:25 PM) UA Ketones [Negative] Negative *NA* (10/10/13 3:25 PM) UA Protein [Negative] Negative (10/10/13 3:25 PM) UA Urobilinogen [0.1-1.0 EU/dL] 1.0 EU/dL (10/10/13 3:25 PM) UA Bili [Negative] Small *ABN* (10/10/13 3:25 PM) UA Leuk Est [Negative] Small *ABN* (10/10/13 3:25 PM) UA Nitrite [Negative] Negative (10/10/13 3:25 PM) UA WBC [None Seen /HPF] 3-5 /HPF (10/10/13 3:25 PM) UA RBC [0-2 /HPF] 0-2 /HPF (10/10/13 3:25 PM) UA Bacteria [None Seen /HPF] Few /HPF (10/10/13 3:25 PM) UA Sq Epi [Few /LPF] Few /LPF (10/10/13 3:25 PM) UA Mucus [None Seen /LPF] Few /LPF (10/10/13 3:25 PM) HEMATOLOGY Most recent to oldest [Reference Range]: 1 WBC [3.7-10.4 K/CMM] 8.0 K/CMM (10/10/13 2:59 PM) RBC [4.70-6.10 M/CMM] 5.28 M/CMM (10/10/13 2:59 PM) Hgb [14.0-18.0 g/dL] 14.8 g/dL (10/10/13 2:59 PM) Hct [42.0-54.0 %] 42.5 % (10/10/13 2:59 PM) MCV [80.0-94.0 fL] 80.5 fL (10/10/13 2:59 PM) MCH [27.0-31.0 pg] 28.0 pg (10/10/13 2:59 PM) MCHC [32.0-36.0 g/dL] 34.8 g/dL (10/10/13 2:59 PM) RDW [11.5-14.5 %] 13.5 % (10/10/13 2:59 PM) Platelet [133-450 K/CMM] 244 K/CMM (10/10/13 2:59 PM) MPV [7.4-10.4 fL] 8.0 fL (10/10/13 2:59 PM) Segs [45.0-75.0 %] 67.6 % (10/10/13 2:59 PM) Lymphocytes [20.0-40.0 %] 21.3 % (10/10/13 2:59 PM) Monocytes [2.0-12.0 %] 8.1 % (10/10/13 2:59 PM) Eosinophils [0.0-4.0 %] 2.3 % (10/10/13 2:59 PM) Basophils [0.0-1.0 %] 0.7 % (10/10/13 2:59 PM) Segs-Bands # [1.5-8.1 K/CMM] 5.4 K/CMM (10/10/13 2:59 PM) Lymphocytes # [1.0-5.5 K/CMM] 1.7 K/CMM (10/10/13 2:59 PM) Monocytes # [0.0-0.8 K/CMM] 0.6 K/CMM (10/10/13 2:59 PM) Eosinophils # [0.0-0.5 K/CMM] 0.2 K/CMM (10/10/13 2:59 PM) Basophils # [0.0-0.2 K/CMM] 0.1 K/CMM (10/10/13 2:59 PM) Medications Administered During Your Visit No data available for this section Immunizations No data available for this section Social History Social History Type Response Smoking Status Never smoker, Exposure to Tobacco Smoke None, Cigarette Smoking Last 365 Days No, Reg Smoking Cessation Counseling No
--- OUTSIDE RECORDS SUMMARY | 2018-02-12 11:15 | XMS REPORT | Summary of Care ---
:1975 Author Organization [facility] Address [address] [place] [address]- Encounter [facility](FIN) [id number] Date(s): 05/02/16 - 05/03/16 [facility] [address] [place] [phone] Discharge Diagnosis: Acute Hyperglycemia Discharge Disposition: Home or Self Care Attending Physician: Zion Gonzalez MD Vital Signs Most recent to oldest 1 2 3 [Reference Range]: Height 167.64 cm (05/02/16 11:56 PM) Temperature Oral [96.4-99.1 98.2 DegF 98.3 DegF DegF] (05/03/16 4:35 AM) (05/02/16 11:56 PM) Blood Pressure [90-140/60-90 124/68 mmHg 138/90 mmHg 136/92 mmHg mmHg] (05/03/16 4:35 AM) (05/03/16 3:15 AM) (05/02/16 11:56 PM) Respiratory Rate [14-20 BRMIN] 16 BRMIN 18 BRMIN (05/03/16 3:15 AM) (05/02/16 11:56 PM) Peripheral Pulse Rate [60-100 65 bpm 78 bpm bpm] (05/03/16 3:15 AM) (05/02/16 11:56 PM) Weight 109.091 kg (05/02/16 11:56 PM) Body Mass Index 38.82 m2 (05/02/16 11:56 PM) Problem List Condition Effective Dates Status Health Status Informant Diverticulitis(Confirmed) Resolved DM (diabetes mellitus)(Confirmed) Resolved Obesity(Confirmed) Resolved Allergies, Adverse Reactions, Alerts Substance Reaction Severity Status morphine Active Medications glipiZIDE-metformin 2.5 mg-500 mg oral tablet 1 tab, PO, BID, # 60 tab, 0 Refill(s) Start Date: 05/03/16 Status: OrderedInsulin regular 8 unit, 0.08 mL, Route: IVP, Drug form: INJ, ONCE, Dosing Weight 109.091, kg, Priority: STAT, Start date: 05/03/16 3:29:00 DIRECTOR DRUG, Stop date: 05/03/16 3:29:00 DIRECTOR DRUG Notes: (Same as: Humulin R and NovoLIN R)WASTE: F/P - Black; E - Municipal Trash Bin (Do not shake) Start Date: 05/03/16 Stop Date: 05/03/16 Status: OrderedInsulin regular 10 unit, 0.1 mL, Route: IVP, Drug form: INJ, ONCE, Dosing Weight 109.091, kg, Priority: STAT, Start date: 05/03/16 2:39:00 DIRECTOR DRUG, Stop date: 05/03/16 2:39:00 DIRECTOR DRUG Notes: (Same as: Humulin R and NovoLIN R)WASTE: F/P - Black; E - Municipal Trash Bin (Do not shake) Start Date: 05/03/16 Stop Date: 05/03/16 Status: CompletedKeflex 500 mg oral capsule 500 mg=1 cap, PO, QID, X 7 day, # 28 cap, 0 Refill(s) Start Date: 05/03/16 Stop Date: 05/10/16 Status: Orderednystatin topical 100,000 units/g ointment 1 appl, TOP, TID, X 7 day, # 15 gm, 0 Refill(s) Start Date: 05/03/16 Stop Date: 05/10/16 Status: OrderedSodium Chloride 0.9% (Bolus) IV 1,000 mL, 1000 ml/hr, Infuse Over: 1 hr, Route: IV, 1,000, Drug form: INJ, ONCE , Priority: STAT, Dosing Weight 109.091 kg, Start date: 05/03/16 2:39:00 DIRECTOR DRUG, Duration: 1 doses or times, Stop date: 05/03/16 2:39:00 DIRECTOR DRUG Start Date: 05/03/16 Stop Date: 05/03/16 Status: Completed Results ELECTROLYTES Most recent to oldest [Reference Range]: 1 Sodium Lvl [135-145 mEq/L] 138 mEq/L (05/03/16 2:55 AM) Potassium Lvl [3.5-5.1 mEq/L] 3.8 mEq/L (05/03/16 2:55 AM) Chloride Lvl [95-109 mEq/L] 100 mEq/L (05/03/16 2:55 AM) CO2 [24-32 mEq/L] 27 mEq/L (05/03/16 2:55 AM) AGAP [10.0-20.0 mEq/L] 14.8 mEq/L (05/03/16 2:55 AM) CHEM PANEL Most recent to oldest [Reference Range]: 1 Creatinine Lvl [0.50-1.40 mg/dL] 0.84 mg/dL (05/03/16 2:55 AM) eGFR 109 mL/min/1.73m2 1 *NA* (05/03/16 2:55 AM) BUN [7-22 mg/dL] 12 mg/dL (05/03/16 2:55 AM) B/C Ratio [6-25] 14 (05/03/16 2:55 AM) Glucose Lvl [70-99 mg/dL] 393 mg/dL *HI* (05/03/16 2:55 AM) Total Protein [6.4-8.4 g/dL] 7.4 g/dL (05/03/16 2:55 AM) Albumin Lvl [3.5-5.0 g/dL] 3.8 g/dL (05/03/16 2:55 AM) Globulin [2.7-4.2 g/dL] 3.6 g/dL (05/03/16 2:55 AM) A/G Ratio [0.7-1.6] 1.1 (05/03/16 2:55 AM) Calcium Lvl [8.5-10.5 mg/dL] 8.9 mg/dL (05/03/16 2:55 AM) ALT [0-65 unit/L] 45 unit/L (05/03/16 2:55 AM) AST [0-37 unit/L] 16 unit/L (05/03/16 2:55 AM) Alk Phos [39-136 unit/L] 147 unit/L *HI* (05/03/16 2:55 AM) Bili Total [0.2-1.3 mg/dL] 0.7 mg/dL (05/03/16 2:55 AM) 1Result Comment: The eGFR is calculated [...] eGFR should be multiplied by the estimated BMI.URINE AND STOOL Most recent to oldest [Reference Range]: 1 UA Turbidity [Clear] Clear (05/03/16 2:55 AM) UA Color [Yellow] Yellow *NA* (05/03/16 2:55 AM) UA pH [5.0-8.0] 5.0 (05/03/16 2:55 AM) UA Spec Grav [<=1.030] <=1.005 *NA* (05/03/16 2:55 AM) UA Glucose [Negative mg/dL] 500 mg/dL *ABN* (05/03/16 2:55 AM) UA Blood [Negative] Negative (05/03/16 2:55 AM) UA Ketones [Negative] Negative *NA* (05/03/16 2:55 AM) UA Protein [Negative] Negative (05/03/16 2:55 AM) UA Urobilinogen [0.1-1.0 EU/dL] 0.2 EU/dL (05/03/16 2:55 AM) UA Bili [Negative] Negative *NA* (05/03/16 2:55 AM) UA Leuk Est [Negative] Negative (05/03/16 2:55 AM) UA Nitrite [Negative] Negative (05/03/16 2:55 AM) UA WBC [None Seen /HPF] 0-2 /HPF (05/03/16 2:55 AM) UA RBC [0-2] None Seen (05/03/16 2:55 AM) UA Bacteria [None Seen] None Seen (05/03/16 2:55 AM) UA Sq Epi [Few] None Seen (05/03/16 2:55 AM) UA Mucus [None Seen] None Seen (05/03/16 2:55 AM) UA [place] Yeast [None Seen /HPF] Few /HPF *ABN* (05/03/16 2:55 AM) HEMATOLOGY Most recent to oldest [Reference Range]: 1 WBC [3.7-10.4 K/CMM] 8.6 K/CMM (05/03/16 2:55 AM) RBC [4.70-6.10 M/CMM] 5.47 M/CMM (05/03/16 2:55 AM) Hgb [14.0-18.0 g/dL] 15.5 g/dL (05/03/16 2:55 AM) Hct [42.0-54.0 %] 43.9 % (05/03/16 2:55 AM) MCV [80.0-94.0 fL] 80.3 fL (05/03/16 2:55 AM) MCH [27.0-31.0 pg] 28.3 pg (05/03/16 2:55 AM) MCHC [32.0-36.0 g/dL] 35.2 g/dL (05/03/16 2:55 AM) RDW [11.5-14.5 %] 13.7 % (05/03/16 2:55 AM) Platelet [133-450 K/CMM] 243 K/CMM (05/03/16 2:55 AM) MPV [7.4-10.4 fL] 8.3 fL (05/03/16 2:55 AM) Segs [45.0-75.0 %] 60.7 % (05/03/16 2:55 AM) Lymphocytes [20.0-40.0 %] 29.4 % (05/03/16 2:55 AM) Monocytes [2.0-12.0 %] 7.1 % (05/03/16 2:55 AM) Eosinophils [0.0-4.0 %] 1.8 % (05/03/16 2:55 AM) Basophils [0.0-1.0 %] 1.0 % (05/03/16 2:55 AM) Segs-Bands # [1.5-8.1 K/CMM] 5.2 K/CMM (05/03/16 2:55 AM) Lymphocytes # [1.0-5.5 K/CMM] 2.5 K/CMM (05/03/16 2:55 AM) Monocytes # [0.0-0.8 K/CMM] 0.6 K/CMM (05/03/16 2:55 AM) Eosinophils # [0.0-0.5 K/CMM] 0.2 K/CMM (05/03/16 2:55 AM) Basophils # [0.0-0.2 K/CMM] 0.1 K/CMM (05/03/16 2:55 AM) Immunizations No data available for this section Procedures Procedure Date Related Diagnosis Body Site Closure of colostomy Social History Social History Type Response Smoking Status Never smoker; Exposure to Tobacco Smoke None; Cigarette Smoking Last 365 Days No; Reg Smoking Cessation Counseling No Assessment and Plan No data available for this section
--- OUTSIDE RECORDS SUMMARY | 2018-02-12 11:15 | XMS REPORT | Summary of Care ---
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) - Discharge Disposition: Acute Care Attending Physician: Qamar Garsia MD Vital Signs Most recent to oldest [Reference Range]: 1 2 Temperature Oral [96.4-99.1 DegF] 98.1 DegF 98.1 DegF (07/01/17 6:40 AM) (07/01/17 6:29 AM) Blood Pressure [90-140/60-90 mmHg] 157/107 mmHg 151/119 mmHg *HI* *HI* (07/01/17 6:40 AM) (07/01/17 6:29 AM) Respiratory Rate [14-20 BRMIN] 20 BRMIN 18 BRMIN (07/01/17 6:40 AM) (07/01/17 6:29 AM) Peripheral Pulse Rate [60-100 bpm] 80 bpm 98 bpm (07/01/17 6:40 AM) (07/01/17 6:29 AM) Weight 96.004 kg (07/01/17 6:29 AM) Problem List Condition Effective Dates Status Health Status Informant Diverticulitis(Confirmed) Resolved DM (diabetes mellitus)(Confirmed) Resolved Obesity(Confirmed) Resolved Allergies, Adverse Reactions, Alerts Substance Reaction Severity Status morphine Active Vicodin Active [place] Active Medications metoprolol 5 mg/5 ml INJ 5 mg, Route: IVP, Drug form: INJ, ONCE, Dosing Weight 96.004, kg, Priority: STAT , Start date: 07/01/17 6:48:00 CDT, Stop date: 07/01/17 6:48:00 CDT Start Date: 07/01/17 Stop Date: 07/01/17 Status: Completednitroglycerin 0.4 mg sublingual tablet 0.4 mg, 1 tab, Route: SL, Drug form: TAB, Q5Min, Dosing Weight 96.004, kg, PRN Chest Pain, Priority:STAT, Start date: 07/01/17 6:47:00 CDT, Duration: 3 doses or times, Stop date: Limited # of times Notes: (Same as:Nitroquick, Nitrostat)"Do Not Crush" Sublingual tablet Start Date: 07/01/17 Stop Date: 07/01/17 Status: DiscontinuedSaline Flush 0.9% 10 mL, Route: IVP, Drug Form: INJ, Dosing Weight 96.004, kg, PRN, PRN Line Flush , Start date: 07/01/17 6:33:00 CDT, Duration: 30 day, Stop date: 07/31/17 6:32: 00 CDT Notes: (Same as: BD Posiflush) Start Date: 07/01/17 Stop Date: 07/01/17 Status: DiscontinuedSodium Chloride 0.9% (Bolus) IV 1,000 mL, Infuse Over: 1 hr, Route: IV, ONCE, Priority: STAT, Dosing Weight 96.004 kg, Start date: 07/01/17 6:52:00 CDT, Stop date: 07/01/17 6:52:00 CDT Start Date: 07/01/17 Stop Date: 07/01/17 Status: Completed Results ELECTROLYTES Most recent to oldest [Reference Range]: 1 Sodium Lvl [135-145 mEq/L] 132 mEq/L *LOW* (07/01/17 6:37 AM) Potassium Lvl [3.5-5.1 mEq/L] 3.8 mEq/L (07/01/17 6:37 AM) Chloride Lvl [95-109 mEq/L] 99 mEq/L (07/01/17 6:37 AM) CO2 [24-32 mEq/L] 29 mEq/L (07/01/17 6:37 AM) AGAP [10.0-20.0 mEq/L] 7.8 mEq/L *LOW* (07/01/17 6:37 AM) CHEM PANEL Most recent to oldest [Reference Range]: 1 Creatinine Lvl [0.50-1.40 mg/dL] 0.81 mg/dL (07/01/17 6:37 AM) eGFR 110 mL/min/1.73m2 1 *NA* (07/01/17 6:37 AM) BUN [7-22 mg/dL] 16 mg/dL (07/01/17 6:37 AM) B/C Ratio [6-25] 20 (07/01/17 6:37 AM) Glucose Lvl [70-99 mg/dL] 268 mg/dL *HI* (07/01/17 6:37 AM) Total Protein [6.4-8.4 g/dL] 8.2 g/dL (07/01/17 6:37 AM) Albumin Lvl [3.5-5.0 g/dL] 4.1 g/dL (07/01/17 6:37 AM) Globulin [2.7-4.2 g/dL] 4.1 g/dL (07/01/17 6:37 AM) A/G Ratio [0.7-1.6] 1.0 (07/01/17 6:37 AM) Calcium Lvl [8.5-10.5 mg/dL] 8.5 mg/dL (07/01/17 6:37 AM) ALT [0-65 unit/L] 65 unit/L (07/01/17 6:37 AM) AST [0-37 unit/L] 37 unit/L (07/01/17 6:37 AM) Alk Phos [39-136 unit/L] 137 unit/L *HI* (07/01/17 6:37 AM) Bili Total [0.2-1.3 mg/dL] 1.0 mg/dL (07/01/17 6:37 AM) 1Result Comment: The eGFR is calculated using the CKD-EPI formula. In most young , healthy individualsthe eGFR will be >90 mL/min/1.73m2. The eGFR declines with age. An eGFR of 60-89 may be normal insome populations, particularly the elderly, for whom the [...] eGFR should be multiplied by the estimated BMI.CARDIAC ENZYMES Most recent to oldest [Reference Range]: 1 Total CK [12-191 unit/L] 220 unit/L *HI* (07/01/17 6:37 AM) CK MB [0.5-3.6 ng/mL] 2.8 ng/mL (07/01/17 6:37 AM) CK MB Index [0.0-2.5] 1.3 (07/01/17 6:37 AM) Troponin-I [0.00-0.40 ng/mL] <0.02 ng/mL (07/01/17 6:37 AM) HEMATOLOGY Most recent to oldest [Reference Range]: 1 WBC [3.7-10.4 K/CMM] 7.4 K/CMM (07/01/17 6:37 AM) RBC [4.70-6.10 M/CMM] 5.75 M/CMM (07/01/17 6:37 AM) Hgb [14.0-18.0 g/dL] 17.2 g/dL (07/01/17 6:37 AM) Hct [42.0-54.0 %] 47.1 % (07/01/17 6:37 AM) MCV [80.0-94.0 fL] 81.9 fL (07/01/17 6:37 AM) MCH [27.0-31.0 pg] 29.9 pg (07/01/17 6:37 AM) MCHC [32.0-36.0 g/dL] 36.5 g/dL *HI* (07/01/17 6:37 AM) RDW [11.5-14.5 %] 13.8 % (07/01/17 6:37 AM) MPV [7.4-10.4 fL] 7.9 fL (07/01/17 6:37 AM) Platelet [133-450 K/CMM] 265 K/CMM (07/01/17 6:37 AM) Segs [45.0-75.0 %] 54.8 % (07/01/17 6:37 AM) Lymphocytes [20.0-40.0 %] 33.4 % (07/01/17 6:37 AM) Monocytes [2.0-12.0 %] 8.4 % (07/01/17 6:37 AM) Eosinophils [0.0-4.0 %] 2.4 % (07/01/17 6:37 AM) Basophils [0.0-1.0 %] 1.0 % (07/01/17 6:37 AM) Segs-Bands # [1.5-8.1 K/CMM] 4.1 K/CMM (07/01/17 6:37 AM) Lymphocytes # [1.0-5.5 K/CMM] 2.5 K/CMM (07/01/17 6:37 AM) Monocytes # [0.0-0.8 K/CMM] 0.6 K/CMM (07/01/17 6:37 AM) Eosinophils # [0.0-0.5 K/CMM] 0.2 K/CMM (07/01/17 6:37 AM) Basophils # [0.0-0.2 K/CMM] 0.1 K/CMM (07/01/17 6:37 AM) Immunizations No data available for this section Procedures Procedure Date Related Diagnosis Body Site Status Closure of colostomy Completed Hernia repair Completed Social History Social History Type Response Alcohol Type Liquor. Frequency: 1-2 times per month. Smoking Status Never smoker; Previous treatment: None; Ready to change: No; Concerns about tobacco use in household: No; Exposure to Tobacco Smoke None; Cigarette Smoking Last 365 Days No; Reg Smoking Cessation Counseling No entered on: 07/01/17 Assessment and Plan No data available for this section
--- OUTSIDE RECORDS SUMMARY | 2018-02-12 11:16 | XMS REPORT | Summary of Care ---
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) - Body mass index (BMI) 34.0-34.9, adult (Final) - Discharge Disposition: Home or Self Care Attending Physician: Niecy Liao MD Admitting Physician: Niecy Liao MD Vital Signs Most recent to oldest [Reference 1 2 3 Range]: Height 167.64 cm (07/01/17 8:38 AM) Temperature Oral [96.4-99.1 98.1 DegF 97.7 DegF 98.6 DegF DegF] (07/03/17 11:18 AM) (07/03/17 7:11 AM) (07/03/17 4:06 AM) Blood Pressure [90-140/60-90 107/69 mmHg 116/74 mmHg 117/73 mmHg mmHg] (07/03/17 11:18 AM) (07/03/17 7:11 AM) (07/03/17 4:06 AM) Respiratory Rate [14-20 BRMIN] 16 BRMIN 16 BRMIN 16 BRMIN (07/03/17 11:18 AM) (07/03/17 7:11 AM) (07/03/17 12:00 AM) Peripheral Pulse Rate [60-100 75 bpm 78 bpm 72 bpm bpm] (07/03/17 11:18 AM) (07/03/17 7:11 AM) (07/03/17 4:06 AM) Weight 95.909 kg (07/01/17 8:38 AM) Body Mass Index 34.13 m2 (07/01/17 8:38 AM) Problem List Condition Effective Dates Status Health Status Informant Diverticulitis(Confirmed) Resolved DM (diabetes mellitus)(Confirmed) Resolved Obesity(Confirmed) Resolved Allergies, Adverse Reactions, Alerts Substance Reaction Severity Status morphine Active Vicodin Active [place] Active Medications acetaminophen 650 mg, 2 tab, Route: PO, Drug form: TAB, Q4H, Dosing Weight 95.909, kg, PRN Pain Score 7-10, Start date: 07/01/17 8:51:00 CDT, Duration: 30 day, Stop date: 07/31/17 8:50:00 CDT Notes: Do not exceed 4 gm/day. (Same as: Tylenol) Start Date: 07/01/17 Stop Date: 07/03/17 Status: Discontinuedaspirin 325 mg tablet 325 mg=1 tab, PO, Daily, # 30 tab, 0 Refill(s), Pharmacy: [id number] Start Date: 07/03/17 Stop Date: 07/03/17 Status: Discontinuedaspirin 325 mg tablet 325 mg=1 tab, PO, Daily, 0 Refill(s) Start Date: 07/03/17 Status: Orderedaspirin 325 mg tablet 325 mg, 1 tab, Route: PO, Drug form: ECTAB, Daily, Dosing Weight 96.004, kg, Start date: 07/01/17 9:00:00 CDT, Duration: 30 day, Stop date: 07/30/17 9:00:00 CDT Notes: (Do Not Crush) Do not crush or chew. Start Date: 07/01/17 Stop Date: 07/03/17 Status: Discontinuedatorvastatin 10 mg oral tablet 10 mg=1 tab, PO, Bedtime, 0 Refill(s) Start Date: 07/03/17 Status: Orderedatorvastatin 10 mg oral tablet 10 mg=1 tab, PO, Bedtime, # 30 tab, 0 Refill(s), Pharmacy: [id number] Start Date: 07/03/17 Stop Date: 07/03/17 Status: DiscontinuedDextrose 50% Syringe 25 gm, 50 mL, Route: IVP, Drug Form: INJ, Dosing Weight 95.909, kg, PRN, PRN Blood Glucose Results, Start date: 07/03/17 9:46:00 CDT, Duration: 30 day, Stop date: 08/02/17 9:45:00 CDT Start Date: 07/03/17 Stop Date: 07/03/17 Status: DiscontinuedDextrose 50% Syringe 12.5 gm, 25 mL, Route: IVP, Drug Form: INJ, Dosing Weight 95.909, kg, PRN, PRN Blood Glucose Results, Start date: 07/03/17 9:46:00 CDT, Duration: 30 day, Stop date: 08/02/17 9:45:00 CDT Start Date: 07/03/17 Stop Date: 07/03/17 Status: DiscontinuedDextrose 50% Syringe 12.5 gm, 25 mL, Route: IVP, Drug Form: INJ, Dosing Weight 95.909, kg, PRN, PRN Blood Glucose Results, Start date: 07/01/17 13:48:00 CDT, Duration: 30 day, Stop date: 07/31/17 13:47:00 CDT Start Date: 07/01/17 Stop Date: 07/02/17 Status: DeletedDextrose 50% Syringe 25 gm, 50 mL, Route: IVP, Drug Form: INJ, Dosing Weight 95.909, kg, PRN, PRN Blood Glucose Results, Start date: 07/01/17 13:48:00 CDT, Duration: 30 day, Stop date: 07/31/17 13:47:00 CDT Start Date: 07/01/17 Stop Date: 07/02/17 Status: DeletedDextrose 50% Syringe 12.5 gm, 25 mL, Route: IVP, Drug Form: INJ, Dosing Weight 95.909, kg, PRN, PRN Blood Glucose Results, Start date: 07/02/17 15:30:00 CDT, Duration: 30 day, Stop date: 08/01/17 15:29:00 CDT Start Date: 07/02/17 Stop Date: 07/03/17 Status: DiscontinuedDextrose 50% Syringe 25 gm, 50 mL, Route: IVP, Drug Form: INJ, Dosing Weight 95.909, kg, PRN, PRN Blood Glucose Results, Start date: 07/02/17 15:30:00 CDT, Duration: 30 day, Stop date: 08/01/17 15:29:00 CDT Start Date: 07/02/17 Stop Date: 07/03/17 Status: DiscontinuedDilaudid 2 mg, 1 tab, Route: PO, Drug form: TAB, Q6H, Dosing Weight 95.909, kg, PRN Pain Score 4-6, Start date: 07/01/17 16:16:00 CDT, Duration: 30 day, Stop date: 07/31 16:15:00 CDT Notes: (Same as: Dilaudid) Start Date: 07/01/17 Stop Date: 07/03/17 Status: DiscontinuedglipiZIDE-metformin 2.5 mg-500 mg oral tablet 1 tab, Route: PO, Drug Form: TAB, Dosing Weight 95.909, kg, BID, Start date: 07/17 17:00:00 CDT, Duration: 30 day, Stop date: 08/02/17 9:00:00 CDT Start Date: 07/03/17 Stop Date: 07/03/17 Status: DeletedglipiZIDE-metformin 2.5 mg-500 mg oral tablet 1 tab, PO, BID, # 60 tab, 0 Refill(s), Pharmacy: [id number] Start Date: 07/03/17 Stop Date: 07/03/17 Status: DiscontinuedglipiZIDE-metformin 2.5 mg-500 mg oral tablet 1 tab, PO, BID, 0 Refill(s) Start Date: 07/03/17 Status: Orderedglucagon 1 mg, Route: IM, Drug form: PDR/INJ, PRN, Dosing Weight 95.909, kg, PRN Blood Glucose Results, Startdate: 07/03/17 9:46:00 CDT, Duration: 30 day, Stop date: 08/02/17 9:45:00 CDT Start Date: 07/03/17 Stop Date: 07/03/17 Status: Discontinuedglucagon 1 mg, Route: IM, Drug form: PDR/INJ, PRN, Dosing Weight 95.909, kg, PRN Blood Glucose Results, Startdate: 07/01/17 13:48:00 CDT, Duration: 30 day, Stop date: 07/31/17 13:47:00 CDT Start Date: 07/01/17 Stop Date: 07/02/17 Status: Deletedglucagon 1 mg, Route: IM, Drug form: PDR/INJ, PRN, Dosing Weight 95.909, kg, PRN Blood Glucose Results, Startdate: 07/02/17 15:30:00 CDT, Duration: 30 day, Stop date: 08/01/17 15:29:00 CDT Start Date: 07/02/17 Stop Date: 07/03/17 Status: DiscontinuedGlucophage 500 mg, 1 tab, Route: PO, Drug form: TAB, BID-Meals, Start date: 07/03/17 17:00: 00 CDT, Duration: 30day, Stop date: 08/02/17 8:00:00 CDT Notes: (Same as: Glucophage) Take with meal Start Date: 07/03/17 Stop Date: 07/03/17 Status: CanceledGlucotrol 2.5 mg, 0.5 tab, Route: PO, Drug form: TAB, BID-Before Meals, Start date: 16:30:00 CDT, Duration: 30 day, Stop date: 08/02/17 7:30:00 CDT Start Date: 07/03/17 Stop Date: 07/03/17 Status: DiscontinuedImdur 30 mg, 1 tab, Route: PO, Drug form: ERTAB, QAM, Dosing Weight 95.909, kg, Start date: 07/02/17 10:30:00 CDT, Duration: 30 day, Stop date: 08/01/17 9:00:00 CDT Notes: (Same as:Imdur) Start Date: 07/02/17 Stop Date: 07/03/17 Status: Discontinuedinsulin lispro 3 unit, 0.03 mL, Route: SUB-Q, Drug form: SOLN, Bedtime, Dosing Weight 95.909, kg, PRN Blood GlucoseResults, Start date: 07/03/17 9:46:00 CDT, Duration: 30 day , Stop date: 08/02/17 9:45:00 CDT Notes: (Same as: Humalog ) Roll in palms of hands gently; Do not shake ` vigorously. "Single PatientUse Only " WASTE: F/P - Black; E - Municipal Trash Bin Stable for 28 days at room temperature.Expires in days from Date Start Date: 07/03/17 Stop Date: 07/03/17 Status: Discontinuedinsulin lispro 4 unit, 0.04 mL, Route: SUB-Q, Drug form: SOLN, Bedtime, Dosing Weight 95.909, kg, PRN Blood GlucoseResults, Start date: 07/03/17 9:46:00 CDT, Duration: 30 day , Stop date: 08/02/17 9:45:00 CDT Notes: (Same as: Humalog ) Roll in palms of hands gently; Do not shake ` vigorously. "Single PatientUse Only " WASTE: F/P - Black; E - [employer] Trash Bin Stable for 28 days at room temperature.Expires in days from Date Start Date: 07/03/17 Stop Date: 07/03/17 Status: Discontinuedinsulin lispro 2 unit, 0.02 mL, Route: SUB-Q, Drug form: SOLN, Bedtime, Dosing Weight 95.909, kg, PRN Blood GlucoseResults, Start date: 07/03/17 9:46:00 CDT, Duration: 30 day , Stop date: 08/02/17 9:45:00 CDT Notes: (Same as: Humalog ) Roll in palms of hands gently; Do not shake ` vigorously. "Single PatientUse Only " WASTE: F/P - Black; E - [employer] Trash Bin Stable for 28 days at room temperature.Expires in days from Date Start Date: 07/03/17 Stop Date: 07/03/17 Status: Discontinuedinsulin lispro 15 unit, 0.15 mL, Route: SUB-Q, Drug form: SOLN, TID-Before Meals, Dosing Weight 95.909, kg, PRN Blood Glucose Results, Start date: 07/03/17 9:46:00 CDT, Duration: 30 day, Stop date: 08/02/17 9:45:00 CDT Notes: (Same as: Humalog ) Roll in palms of hands gently; Do not shake ` vigorously. "Single PatientUse Only " WASTE: F/P - Black; E - [facility] Trash Bin Stable for 28 days at room temperature.Expires in days from Date Start Date: 07/03/17 Stop Date: 07/03/17 Status: Discontinuedinsulin lispro 1 unit, 0.01 mL, Route: SUB-Q, Drug form: SOLN, Bedtime, Dosing Weight 95.909, kg, PRN Blood GlucoseResults, Start date: 07/03/17 9:46:00 CDT, Duration: 30 day , Stop date: 08/02/17 9:45:00 CDT Notes: (Same as: Humalog ) Roll in palms of hands gently; Do not shake ` vigorously. "Single PatientUse Only " WASTE: F/P - Black; E - [employer] Trash Bin Stable for 28 days at room temperature.Expires in days from Date Start Date: 07/03/17 Stop Date: 07/03/17 Status: Discontinuedinsulin lispro 6 unit, 0.06 mL, Route: SUB-Q, Drug form: SOLN, TID-Before Meals, Dosing Weight 95.909, kg, PRN Blood Glucose Results, Start date: 07/03/17 9:46:00 CDT, Duration: 30 day, Stop date: 08/02/17 9:45:00 CDT Notes: (Same as: Humalog ) Roll in palms of hands gently; Do not shake ` vigorously. "Single PatientUse Only " WASTE: F/P - Black; E - [employer] Trash Bin Stable for 28 days at room temperature.Expires in days from Date Start Date: 07/03/17 Stop Date: 07/03/17 Status: Discontinuedinsulin lispro 9 unit, 0.09 mL, Route: SUB-Q, Drug form: SOLN, TID-Before Meals, Dosing Weight 95.909, kg, PRN Blood Glucose Results, Start date: 07/03/17 9:46:00 CDT, Duration: 30 day, Stop date: 08/02/17 9:45:00 CDT Notes: (Same as: Humalog ) Roll in palms of hands gently; Do not shake ` vigorously. "Single PatientUse Only " WASTE: F/P - Black; E - [employer] Trash Bin Stable for 28 days at room temperature.Expires in days from Date Start Date: 07/03/17 Stop Date: 07/03/17 Status: Discontinuedinsulin lispro 3 unit, 0.03 mL, Route: SUB-Q, Drug form: SOLN, TID-Before Meals, Dosing Weight 95.909, kg, PRN Blood Glucose Results, Start date: 07/03/17 9:46:00 CDT, Duration: 30 day, Stop date: 08/02/17 9:45:00 CDT Notes: (Same as: Humalog ) Roll in palms of hands gently; Do not shake ` vigorously. "Single PatientUse Only " WASTE: F/P - Black; E - [employer] Trash Bin Stable for 28 days at room temperature.Expires in days from Date Start Date: 07/03/17 Stop Date: 07/03/17 Status: Discontinuedinsulin lispro 12 unit, 0.12 mL, Route: SUB-Q, Drug form: SOLN, TID-Before Meals, Dosing Weight 95.909, kg, PRN Blood Glucose Results, Start date: 07/03/17 9:46:00 CDT, Duration: 30 day, Stop date: 08/02/17 9:45:00 CDT Notes: (Same as: Humalog ) Roll in palms of hands gently; Do not shake ` vigorously. "Single PatientUse Only " WASTE: F/P - Black; E - [employer] Trash Bin Stable for 28 days at room temperature.Expires in days from Date Start Date: 07/03/17 Stop Date: 07/03/17 Status: Discontinuedinsulin lispro 4 unit, 0.04 mL, Route: SUB-Q, Drug form: SOLN, Bedtime, Dosing Weight 95.909, kg, PRN Blood GlucoseResults, Start date: 07/01/17 13:48:00 CDT, Duration: 30 day, Stop date: 07/31/17 13:47:00 CDT Notes: (Same as: Humalog ) Roll in palms of hands gently; Do not shake ` vigorously. "Single PatientUse Only " WASTE: F/P - Black; E - [employer] Trash Bin Stable for 28 days at room temperature.Expires in days from Date Start Date: 07/01/17 Stop Date: 07/03/17 Status: Discontinuedinsulin lispro 3 unit, 0.03 mL, Route: SUB-Q, Drug form: SOLN, Bedtime, Dosing Weight 95.909, kg, PRN Blood GlucoseResults, Start date: 07/01/17 13:48:00 CDT, Duration: 30 day, Stop date: 07/31/17 13:47:00 CDT Notes: (Same as: Humalog ) Roll in palms of hands gently; Do not shake ` vigorously. "Single PatientUse Only " WASTE: F/P - Black; E - [employer] Trash Bin Stable for 28 days at room temperature.Expires in days from Date Start Date: 07/01/17 Stop Date: 07/03/17 Status: Discontinuedinsulin lispro 2 unit, 0.02 mL, Route: SUB-Q, Drug form: SOLN, Bedtime, Dosing Weight 95.909, kg, PRN Blood GlucoseResults, Start date: 07/01/17 13:48:00 CDT, Duration: 30 day, Stop date: 07/31/17 13:47:00 CDT Notes: (Same as: Humalog ) Roll in palms of hands gently; Do not shake ` vigorously. "Single PatientUse Only " WASTE: F/P - Black; E - [employer] Trash Bin Stable for 28 days at room temperature.Expires in days from Date Start Date: 07/01/17 Stop Date: 07/03/17 Status: Discontinuedinsulin lispro 1 unit, 0.01 mL, Route: SUB-Q, Drug form: SOLN, Bedtime, Dosing Weight 95.909, kg, PRN Blood GlucoseResults, Start date: 07/01/17 13:48:00 CDT, Duration: 30 day, Stop date: 07/31/17 13:47:00 CDT Notes: (Same as: Humalog ) Roll in palms of hands gently; Do not shake ` vigorously. "Single PatientUse Only " WASTE: F/P - Black; E - [employer] Trash Bin Stable for 28 days at room temperature.Expires in days from Date Start Date: 07/01/17 Stop Date: 07/03/17 Status: Discontinuedinsulin lispro 5 unit, 0.05 mL, Route: SUB-Q, Drug form: SOLN, TID-Before Meals, Dosing Weight 95.909, kg, PRN Blood Glucose Results, Start date: 07/01/17 13:48:00 CDT, Duration: 30 day, Stop date: 07/31/17 13:47:00 CDT Notes: (Same as: Humalog ) Roll in palms of hands gently; Do not shake ` vigorously. "Single PatientUse Only " WASTE: F/P - Black; E - [employer] Trash Bin Stable for 28 days at room temperature.Expires in days from Date Start Date: 07/01/17 Stop Date: 07/02/17 Status: Discontinuedinsulin lispro 2 unit, 0.02 mL, Route: SUB-Q, Drug form: SOLN, TID-Before Meals, Dosing Weight 95.909, kg, PRN Blood Glucose Results, Start date: 07/01/17 13:48:00 CDT, Duration: 30 day, Stop date: 07/31/17 13:47:00 CDT Notes: (Same as: Humalog ) Roll in palms of hands gently; Do not shake ` vigorously. "Single PatientUse Only " WASTE: F/P - Black; E - [employer] Trash Bin Stable for 28 days at room temperature.Expires in days from Date Start Date: 07/01/17 Stop Date: 07/02/17 Status: Discontinuedinsulin lispro 3 unit, 0.03 mL, Route: SUB-Q, Drug form: SOLN, TID-Before Meals, Dosing Weight 95.909, kg, PRN Blood Glucose Results, Start date: 07/01/17 13:48:00 CDT, Duration: 30 day, Stop date: 07/31/17 13:47:00 CDT Notes: (Same as: Humalog ) Roll in palms of hands gently; Do not shake ` vigorously. "Single PatientUse Only " WASTE: F/P - Black; E - [employer] Trash Bin Stable for 28 days at room temperature.Expires in days from Date Start Date: 07/01/17 Stop Date: 07/02/17 Status: Discontinuedinsulin lispro 1 unit, 0.01 mL, Route: SUB-Q, Drug form: SOLN, TID-Before Meals, Dosing Weight 95.909, kg, PRN Blood Glucose Results, Start date: 07/01/17 13:48:00 CDT, Duration: 30 day, Stop date: 07/31/17 13:47:00 CDT Notes: (Same as: Humalog ) Roll in palms of hands gently; Do not shake ` vigorously. "Single PatientUse Only " WASTE: F/P - Black; E - [employer] Trash Bin Stable for 28 days at room temperature.Expires in days from Date Start Date: 07/01/17 Stop Date: 07/02/17 Status: Discontinuedinsulin lispro 4 unit, 0.04 mL, Route: SUB-Q, Drug form: SOLN, TID-Before Meals, Dosing Weight 95.909, kg, PRN Blood Glucose Results, Start date: 07/01/17 13:48:00 CDT, Duration: 30 day, Stop date: 07/31/17 13:47:00 CDT Notes: (Same as: Humalog ) Roll in palms of hands gently; Do not shake ` vigorously. "Single PatientUse Only " WASTE: F/P - Black; E - [employer] Trash Bin Stable for 28 days at room temperature.Expires in days from Date Start Date: 07/01/17 Stop Date: 07/02/17 Status: Discontinuedinsulin lispro 2 unit, 0.02 mL, Route: SUB-Q, Drug form: SOLN, TID-Before Meals, Dosing Weight 95.909, kg, PRN Blood Glucose Results, Start date: 07/02/17 15:30:00 CDT, Duration: 30 day, Stop date: 08/01/17 15:29:00 CDT Notes: (Same as: Humalog ) Roll in palms of hands gently; Do not shake ` vigorously. "Single PatientUse Only " WASTE: F/P - Black; E - [employer] Trash Bin Stable for 28 days at room temperature.Expires in days from Date Start Date: 07/02/17 Stop Date: 07/03/17 Status: Discontinuedinsulin lispro 4 unit, 0.04 mL, Route: SUB-Q, Drug form: SOLN, TID-Before Meals, Dosing Weight 95.909, kg, PRN Blood Glucose Results, Start date: 07/02/17 15:30:00 CDT, Duration: 30 day, Stop date: 08/01/17 15:29:00 CDT Notes: (Same as: Humalog ) Roll in palms of hands gently; Do not shake ` vigorously. "Single PatientUse Only " WASTE: F/P - Black; E - [employer] Trash Bin Stable for 28 days at room temperature.Expires in days from Date Start Date: 07/02/17 Stop Date: 07/03/17 Status: Discontinuedinsulin lispro 6 unit, 0.06 mL, Route: SUB-Q, Drug form: SOLN, TID-Before Meals, Dosing Weight 95.909, kg, PRN Blood Glucose Results, Start date: 07/02/17 15:30:00 CDT, Duration: 30 day, Stop date: 08/01/17 15:29:00 CDT Notes: (Same as: Humalog ) Roll in palms of hands gently; Do not shake ` vigorously. "Single PatientUse Only " WASTE: F/P - Black; E - [employer] Trash Bin Stable for 28 days at room temperature.Expires in days from Date Start Date: 07/02/17 Stop Date: 07/03/17 Status: Discontinuedinsulin lispro 8 unit, 0.08 mL, Route: SUB-Q, Drug form: SOLN, TID-Before Meals, Dosing Weight 95.909, kg, PRN Blood Glucose Results, Start date: 07/02/17 15:30:00 CDT, Duration: 30 day, Stop date: 08/01/17 15:29:00 CDT Notes: (Same as: Humalog ) Roll in palms of hands gently; Do not shake ` vigorously. "Single PatientUse Only " WASTE: F/P - Black; E - [employer] Trash Bin Stable for 28 days at room temperature.Expires in days from Date Start Date: 07/02/17 Stop Date: 07/03/17 Status: Discontinuedinsulin lispro 10 unit, 0.1 mL, Route: SUB-Q, Drug form: SOLN, TID-Before Meals, Dosing Weight 95.909, kg, PRN Blood Glucose Results, Start date: 07/02/17 15:30:00 CDT, Duration: 30 day, Stop date: 08/01/17 15:29:00 CDT Notes: (Same as: Humalog ) Roll in palms of hands gently; Do not shake ` vigorously. "Single PatientUse Only " WASTE: F/P - Black; E - [employer] Trash Bin Stable for 28 days at room temperature.Expires in days from Date Start Date: 07/02/17 Stop Date: 07/03/17 Status: Discontinuedisosorbide mononitrate 30 mg oral tablet, extended release 30 mg=1 tab, PO, QAM, 0 Refill(s) Start Date: 07/03/17 Status: Orderedisosorbide mononitrate 30 mg oral tablet, extended release 30 mg=1 tab, PO, QAM, # 30 tab, 0 Refill(s), Pharmacy: [id number] Start Date: 07/03/17 Stop Date: 07/03/17 Status: DiscontinuedketOROLAC 30 mg, 1 mL, Route: IV, Drug form: INJ, Q6H, Dosing Weight 95.909, kg, PRN Pain Score 6-10, Start date: 07/01/17 10:41:00 CDT, Duration: 4 day, Stop date: 07/05 10:40:00 CDT Notes: (Same as:Toradol) IV bolus must be given >15 seconds. Give IM administration slowly and deeply into the muscle.Not for use > 4 days MEDICATION WASTE Product Size: 30 mgProduct Wasted: ___ mg Start Date: 07/01/17 Stop Date: 07/03/17 Status: DiscontinuedLipitor 10 mg, 1 tab, Route: PO, Drug form: TAB, Bedtime, Dosing Weight 95.909, kg, Start date: 07/02/17 21:00:00 CDT, Duration: 30 day, Stop date: 07/31/17 21:00: 00 CDT Notes: (Same As: Lipitor) Start Date: 07/02/17 Stop Date: 07/03/17 Status: DiscontinuedLovenox 40 mg, 0.4 mL, Route: SUB-Q, Drug form: INJ, [id number], Dosing Weight 95.909, kg , Start date: 07/02/17 11:00:00 CDT, Duration: 30 day, Stop date: 07/31/17 11:00 :00 CDT Notes: (Same as: Lovenox) Start Date: 07/02/17 Stop Date: 07/03/17 Status: Discontinuedmetoprolol tartrate 25 mg, 1 tab, Route: PO, Drug form: TAB, Q12H, Dosing Weight 96.004, kg, Start date: 07/01/17 9:00:00 CDT, Duration: 30 day, Stop date: 07/30/17 21:00:00 CDT Notes: (Same as: Lopressor) Start Date: 07/01/17 Stop Date: 07/03/17 Status: Discontinuedmetoprolol tartrate 25 mg oral tablet 25 mg=1 tab, PO, Q12H, 0 Refill(s) Start Date: 07/03/17 Status: Orderedmetoprolol tartrate 25 mg oral tablet 25 mg=1 tab, PO, Q12H, # 60 tab, 0 Refill(s), Pharmacy: [facility] Start Date: 07/03/17 Stop Date: 07/03/17 Status: Discontinuedpantoprazole 40 mg oral enteric coated tablet 40 mg=1 tab, PO, Daily, 0 Refill(s) Start Date: 07/03/17 Status: Orderedpantoprazole 40 mg oral enteric coated tablet 40 mg=1 tab, PO, Daily, # 30 tab, 0 Refill(s), Pharmacy: [facility] Start Date: 07/03/17 Stop Date: 07/03/17 Status: DiscontinuedPrenatal Multivitamins with Folic Acid 0.8 mg oral tablet 1 tab, Route: PO, Drug Form: TAB, Dosing Weight 95.909, kg, Daily, Start date: 07/03/17 9:00:00 CDT,Duration: 30 day, Stop date: 08/01/17 9:00:00 CDT Start Date: 07/03/17 Stop Date: 07/03/17 Status: DiscontinuedPreNexa premier with DHA 1 cap, Route: PO, Dosing Weight 95.909, kg, Daily, Start date: 07/03/17 9:00:00 CDT, Duration: 30 day, Stop date: 08/01/17 9:00:00 CDT Start Date: 07/03/17 Stop Date: 07/02/17 Status: DeletedProtonix 40 mg, 1 tab, Route: PO, Drug form: ECTAB, Daily, Dosing Weight 95.909, kg, Start date: 07/02/17 9:00:00 CDT, Duration: 30 day, Stop date: 07/31/17 9:00:00 CDT Notes: Tablet should not be chewed or crushed.(Same as: Protonix) Start Date: 07/02/17 Stop Date: 07/03/17 Status: DiscontinuedSodium Chloride 0.9% IV 750 mL 750 mL, Rate: 75 ml/hr, Infuse over: 10 hr, Route: IV, Dosing Weight 95.909 kg, Total Volume: 750, Start date: 07/01/17 8:51:00 CDT, Duration: 10 hr, Stop date : 07/01/17 18:50:00 CDT, 2.14, m2 Start Date: 07/01/17 Stop Date: 07/01/17 Status: CompletedTylenol with Codeine #3 oral tablet 1 tab, Route: PO, Drug Form: TAB, Dosing Weight 95.909, kg, Q4H, PRN Pain Score 1-3, Start date: 07/01/17 10:12:00 CDT, Duration: 30 day, Stop date: 07/31/17 10 :11:00 CDT Start Date: 07/01/17 Stop Date: 07/01/17 Status: DiscontinuedVisipaque 75 mL, Route: IV, Drug form: SOLN, ONCE, Dosing Weight 95.909, kg, Start date: 07/01/17 10:37:00 CDT, Stop date: 07/01/17 10:37:00 CDT Notes: (Same as: Visipaque).WASTE: F/P - Black; E - Municipal Trash Bin Start Date: 07/01/17 Stop Date: 07/01/17 Status: Completed Results ELECTROLYTES Most recent to oldest [Reference Range]: 1 2 3 Sodium Lvl [135-145 mEq/L] 134 mEq/L *LOW* (07/02/17 4:38 AM) Potassium Lvl [3.5-5.1 mEq/L] 3.8 mEq/L (07/02/17 4:38 AM) Chloride Lvl [95-109 mEq/L] 103 mEq/L (07/02/17 4:38 AM) CO2 [24-32 mEq/L] 21 mEq/L *LOW* (07/02/17 4:38 AM) AGAP [10.0-20.0 mEq/L] 13.8 mEq/L (07/02/17 4:38 AM) CHEM PANEL Most recent to oldest [Reference Range]: 1 2 3 Creatinine Lvl [0.50-1.40 mg/dL] 0.56 mg/dL 0.65 mg/dL (07/02/17 4:38 AM) (07/01/17 9:41 AM) eGFR 128 mL/min/1.73m2 1 120 mL/min/1.73m2 2 *NA* *NA* (07/02/17 4:38 AM) (07/01/17 9:41 AM) BUN [7-22 mg/dL] 12 mg/dL (07/02/17 4:38 AM) Glucose Lvl [70-99 mg/dL] 240 mg/dL *HI* (07/02/17 4:38 AM) Calcium Lvl [8.5-10.5 mg/dL] 8.2 mg/dL *LOW* (07/02/17 4:38 AM) 1Result Comment: The eGFR is calculated [...] eGFR should be multiplied by the estimated BMI.2Result Comment: The eGFR is calculated using the CKD-EPI formula. In most young, healthy individualsthe eGFR will be >90 mL/min/1.73m2. [...] estimated BMI.CARDIAC ENZYMES Most recent to oldest 1 2 3 [Reference Range]: Troponin-I [0.00-0.40 ng/mL] 11.00 ng/mL 1 1.90 ng/mL 2 0.08 ng/mL *CRIT* *CRIT* (07/01/17 9:41 AM) (07/02/17 4:38 AM) (07/01/17 3:37 PM) 1Result Comment: Critical Result(s) called to Jovany Evans at 07/02/2017 05:53 by BE. Read back OK.2Result Comment: Critical Result(s) called to Alexandria Justus at 07/01/2017 16:38 by MS. Read back OK.HEMATOLOGY Most recent to oldest [Reference Range]: 1 2 3 WBC [3.7-10.4 K/CMM] 10.2 K/CMM (07/02/17 4:38 AM) RBC [4.70-6.10 M/CMM] 5.24 M/CMM (07/02/17 4:38 AM) Hgb [14.0-18.0 g/dL] 15.2 g/dL 15.0 g/dL (07/02/17 4:38 AM) (07/01/17 9:41 AM) Hct [42.0-54.0 %] 43.1 % (07/02/17 4:38 AM) MCV [80.0-94.0 fL] 82.3 fL (07/02/17 4:38 AM) MCH [27.0-31.0 pg] 29.1 pg (07/02/17 4:38 AM) MCHC [32.0-36.0 g/dL] 35.4 g/dL (07/02/17 4:38 AM) RDW [11.5-14.5 %] 13.5 % (07/02/17 4:38 AM) MPV [7.4-10.4 fL] 8.0 fL (07/02/17 4:38 AM) Platelet [133-450 K/CMM] 220 K/CMM (07/02/17 4:38 AM) Segs [45.0-75.0 %] 68.3 % (07/02/17 4:38 AM) Lymphocytes [20.0-40.0 %] 21.3 % (07/02/17 4:38 AM) Monocytes [2.0-12.0 %] 8.2 % (07/02/17 4:38 AM) Eosinophils [0.0-4.0 %] 1.7 % (07/02/17 4:38 AM) Basophils [0.0-1.0 %] 0.5 % (07/02/17 4:38 AM) Segs-Bands # [1.5-8.1 K/CMM] 7.0 K/CMM (07/02/17 4:38 AM) Lymphocytes # [1.0-5.5 K/CMM] 2.2 K/CMM (07/02/17 4:38 AM) Monocytes # [0.0-0.8 K/CMM] 0.8 K/CMM (07/02/17 4:38 AM) Eosinophils # [0.0-0.5 K/CMM] 0.2 K/CMM (07/02/17 4:38 AM) Basophils # [0.0-0.2 K/CMM] 0.1 K/CMM (07/02/17 4:38 AM) PT [12.0-14.7 seconds] 13.3 seconds (07/02/17 4:38 AM) INR [0.85-1.17] 1.01 (07/02/17 4:38 AM) PTT [22.9-35.8 seconds] 28.8 seconds (07/02/17 4:38 AM) Immunizations No data available for this [...] No entered on: 07/01/17 Assessment and Plan Extracted from: Title: Medical Consultation Progress Note Author: Jin Mcadams MD Date : 07/03/17 * Impression and Plan ASSESSMENT: Suspected ST Elevation on EKG on admission- -no signs of CAD on LHC Non-Q NH HTN DM2 Hx of Hiatal Hernia s/p Repair Morgagnis Hernia PLAN: Defer chest pain workup to Cardiology w Pain meds orn Insulin SS; adjusted as blood sugars elevated GI consult for hernia; pt went for Barium Swallow which results are relatively normal. Follow up with GI outpatient Thank you for allowing us to participate in the care of this pt. Will continue to follow along. Extracted from: Title: Clinical Document Author: Karen Patricia MD Date: 07/01/17 Initial Consult Note Gastroenterology and Hepatology Reason for Consultation: Chest pain Assessment/Impression: 1. Atypical chest pain with a negative heart catheterization. Differential diagnoses at this time include severe reflux esophagitis versus esophageal spasm. It is unlikely that hernia can cause this amount of pain unless it is obstructed and does not appear that it is obstructed given that he is able to swallow his saliva and is not having any trouble swallowing food. Pericarditis can also cause chest pain on occasion. 2. Abnormal CT, Morgagni hernia 3. Diabetes appears to be controlled Plan: -Discussed the differential diagnosis with the patient. I have proposed an upper endoscopy to evaluate the use of flatus for any esophagitis or and rule out large incarcerated hernia. Risks and benefi ts of the procedure discussed with the patient as well as family at bedside. Also discussed plan with the sack department supervisor who is in agreement. -GI prophylaxis with PPI daily -Pain management deferred to primary Than you for asking us to part spent in the care of this patient. We will follow along and provide further recommendations as needed. History Of Present Illness: This is a 42-year-old male with past medical history of hypertension, diabetes , prior history of diverticulitis had prior colostomy and reversal done at [facility] 5-6 years ago presented to the emergency room at [facility] early this morning with acute onset midsternal chest pain and described it as a crushing sensation with as somebody sitting in her chest on his chest. He was emergently transferred for suspected ST el evation [facility] based on abnormal EKGs to [facility] for emergent heart catheterization which she underwent today. Findings of cath were reviewed as well as discussed with the sack department supervisor angie jain over the phone with minimal plaque obstruction with EF of 50%. On heart catheterization the sack department supervisor noted a shadow on the right side border of the heart and therefore ordered a CT chestWith f indings of herniation of fat into the anterior mediastinum through an anterior diaphragmatic defect consistent with Morgagni hernia. On questioning patient he denied any chronic chest pain, chronic aci d reflux no prior mention of hiatal hernia. Eyes any trauma to chest or lifting heavy objects with the last 24-48 hours prior to onset of symptoms. Denies any cough phlegm or shortness of breath at th is time. It does not appear that his chest pain is getting worse with exertion. Does have mild worsening discomfort after eating. Past Medical History: DM (diabetes mellitus) Obesity Diverticulitis Scheduled Meds (3): 07/01/17 aspirin (aspirin 325 mg tablet) 325 mg PO Daily 07/01/17 metoprolol (metoprolol tartrate) 25 mg PO Q12H 07/02/17 pantoprazole (Protonix) 40 mg PO Daily Continuous Infusions (1): 07/01/17 Sodium Chloride 0.9% IV 750 mL 750 mL 75 ml/hr Allergies (3) Active Reaction Vicodin None documented [place] None documented morphine None documented Social History: Alcohol Details: Type Liquor. Frequency: 1-2 times per month. Tobacco Details: Use: Never smoker. Previous treatment: None. Ready to change: No. Household tobacco concerns: No. Tobacco smoke exposure: None. Did the Patient Smoke Cigarettes Anytime During the Last 365 Days? No. Cessation Counseling Provided? No. Family History: No qualifying data available Procedure History: Closure of colostomy Hernia repair Review of Systems: NEGATIVE unless bold General: weight loss, loss of appetite, fever, chills, excessive malaise, fatigue, generalized weakness HEENT : recent change in vison, eye pain, diplopia, epistaxis, sinus pain, sore throat, throat pain, acute hearing loss, ear pain or discharge RESPIRATORY: shortness of breath, hemoptysis, cough, wheezing, pleuritic pains CVS: chest pain, palpitations, irregular herat beat, low extremity swelling, heart murmurs GI: see HPI : hematuria, dysuria, incontinence,urinary frequency, impaired urine flow. recurrent UTIs MS: acute arthritis, back pain, joint swelling, gout Neurological: acute altered mentation, headaches, recent seizures, falls, recent loss of consciousness, gait problems, focal limb weakness, numbness, tingling , paraesthesia Endocrine: polydypsia, polyuria, unusual hair loss Immunological/ Hematological; acute bleeding, easy bleeding or bruising, lymph node swelling, recurrent infections Psychiatric: hallucinations. psychosis, confusion, depression, suicidal ideation Integument: rash, jaundice, generalized Vitals and Temp: Vitals Tmp(F) Pulse BP RR SpO2 FIO2 07/01 16:19 98.5 73 109/70 16 95 --- 07/01 12:15 97.9 80 128/86 16 100 --- 07/01 10:30 97.9 80 124/86 16 100 --- 07/01 09:05 97.9 80 130/88 16 99 --- 07/01 08:35 97.9 72 141/89 16 99 --- 24 Hr Tmax: 98.5F (36.94c) at 07/01 16:19 Vital Signs are the last 5 in the past 48 hours. Examination: Vitals: See above General: NAD Psych: alert ; ortiented x 3 Neck:supple CVS: s1s2 RRR Resp: CTA Bilaterally Abd : Soft, NT, ND , BS + Ext : No edema Skin: No rash WARE DRESSER: No gross motor/sensory defect Labs: Labs (Last four charted values) Hgb 15.0 (JUL 01) Cr 0.65 (JUL 01) Troponin C 1.90 (JUL 01) 0.08 (JUL 01) Diagnostic Studies: Reviewed.
[2018-02-12 13:56] LABS: Protime INR 0.97
[2018-02-12 14:09] LABS: ALT/SGPT 55 U/L (12-78); AST/SGOT 22 U/L (15-37); Alkaline Phosphatase 122 U/L (45-117); BUN Blood Urea Nitrogen 14 mg/dL (7-18); Bicarbonate 26 mmol/L (21-32); Bilirubin Direct 0.2 mg/dL (0-0.2); Bilirubin Total 0.7 mg/dL (0.2-1.0); Glucose Level 280 mg/dL (74-106); Magnesium 1.9 mg/dL (1.8-2.4); NT PRO-BNP 20 pg/mL (<125); Potassium 3.9 mmol/L (3.5-5.1); Protein, Total 7.8 g/dL (6.4-8.2); Sodium Level 134 mmol/L (136-145); Troponin (Emerg Dept Use Only) < 0.02 ng/mL (0.0-0.045)
[2018-02-12 14:40] LABS: Absolute Lymphocytes (CBC) 2.4 K/uL (0.7-4.9); Absolute Monocytes 0.6 K/uL (0.1-1.3); Absolute Neutrophil 5.5 K/uL (1.8-8.0); Basophils % 0.6 % (0-1.3); Eosinophils % 1.6 % (0-4.4); Hematocrit 47.9 % (39.6-49.0); Lymphocytes % 27.6 % (15.3-44.8); MCH 28.9 pg (27.0-35.0); MCV 82.6 fL (80-100); MPV 8.6 fL (7.6-11.3); Monocytes % 6.9 % (3.3-12.3)
--- NOTE | 2018-02-12 14:49 | RAD REPORT ---
EXAM DESCRIPTION: Stevan Single View02/12/2018 2:13 pm CLINICAL HISTORY: Chest pain COMPARISON: 2010 FINDINGS: A prominent right pericardiac opacity represents epicardial fat. The lungs appear clear of acute infiltrate. The heart is normal size IMPRESSION: No acute abnormalities displayed
[2018-02-12] MEDS ORDERED: NA CHLORIDE 0.9% 1,000 ML ONE (15:29)
--- NOTE | 2018-02-12 15:30 | EKG ---
Test Date: 2018-02-12 Test Time: 12:09:14 Journalism Teacher: VERONIQUE MEASUREMENT RESULTS: Intervals: Rate: 75 [place]: 140 QRSD: 88 QT: 350 QTc: 390 [place]: P: 33 OK: 140 QRS: -12 T: 8 INTERPRETIVE STATEMENTS: Normal sinus rhythm Inferior infarct, age undetermined Abnormal ECG Compared to ECG 02/15/2011 11:47:08 Myocardial infarct finding now present Left ventricular hypertrophy no longer present Early repolarization no longer present Electronically Signed On 02-12-18 15:30:28 COMMAND AND CONTROL SPECIALIST by Talah Epperson
[2018-02-12 15:31] LABS: Urine White Blood Cell Casts OK
[2018-02-12 15:32] LABS: Blood Morphology Comment NOT SEEN (NOT SEEN); Platelet Estimate ADEQ; Platelets, Giant FEW
[2018-02-12 16:10] LABS: Urine Blood NEGATIVE (NEG); Urine Glucose 2+ (NEG); Urine Protein NEGATIVE (NEG); Urine Specific Gravity 1.015 (1.005-1.030)
--- NOTE | 2018-02-12 16:48 | ER ---
Nurse's Notes [facility] Name: Jeremy Elias Age: 42 yrs Sex: Male : 1975 Arrival Date: 02/12/2018 Time: 11:13 Bed 24 Private MD: None, None Diagnosis: Hyperglycemia, unspecified;Chest pain, unspecified Presentation: 02/12 11:26 Presenting complaint: Patient states: Elevated blood sugar readings for 1 week. Chest aj pain for 4 days. Denies SOB, N/V. Transition of care: patient was not received from another setting of care. Onset of symptoms was February 05, 2018. Risk Assessment: Do you want to hurt yourself or someone else? Patient reports no desire to harm self or others. Initial Sepsis Screen: Does the patient meet any 2 criteria? No. Patient's initial sepsis screen is negative. Does the patient have a suspected source of infection? No. Patient's initial sepsis screen is negative. Care prior to arrival: None. 11:26 Method Of Arrival: Ambulatory 11:26 Acuity: PARUL 3 aj Triage Assessment: 11:28 General: Appears in no apparent distress. comfortable, Behavior is calm, cooperative, aj appropriate for age. Pain: Complains of pain in chest. Neuro: Level of Consciousness is awake, alert, obeys commands, Oriented to person, place, time, situation, Appropriate for age. Cardiovascular: Reports chest pain, Capillary refill < 3 seconds in bilateral fingers Patient's skin is warm and dry. Respiratory: Airway is patent Respiratory effort is even, unlabored, Respiratory pattern is regular, symmetrical. Derm: Skin is intact, is healthy with good turgor, Skin is pink, warm \T\ dry. normal. Historical: - Allergies: : No Known Allergies; aj - Home Meds: 11: Glipizide Oral [Active]; Metformin Oral [Active]; aj - PMHx: 11:28 Diabetes - NIDDM; aj - PSHx: 11:28 colostomy with reversal; Hernia repair; aj - Immunization history:: Adult Immunizations up to date. - Social history:: Smoking status: Patient/guardian denies using tobacco. - Ebola Screening: : Patient negative for fever greater than or equal to 101.5 degrees Fahrenheit, and additional compatible Ebola Virus Disease symptoms Patient denies exposure to infectious person Patient denies travel to an Ebola-affected area in the 21 days before illness onset No symptoms or risks identified at this time. Screenin:10 Abuse screen: Denies threats or abuse. Nutritional screening: No deficits noted. tl3 Tuberculosis screening: No symptoms or risk factors identified. Fall Risk None identified. Assessment: 13:10 Reassessment: pt came in because his BGL has been over 300 for the last several days, tl3 no vomiting, no diarrhea. BGL in triage was 314, ate potatoes and biscuits for breakfast before coming in. General: Appears in no apparent distress. comfortable, obese, well groomed, well developed, well nourished, Behavior is calm, cooperative, appropriate for age. Pain: Denies pain. Neuro: Level of Consciousness is awake, alert, obeys commands, Oriented to person, place, time, situation, Appropriate for age. Cardiovascular: Patient's skin is warm and dry. Respiratory: Airway is patent. GI: No signs and/or symptoms were reported involving the gastrointestinal system. : No signs and/or symptoms were reported regarding the genitourinary system. EENT: No signs and/or symptoms were reported regarding the EENT system. Derm: No signs and/or symptoms reported regarding the dermatologic system. Musculoskeletal: No signs and/or symptoms reported regarding the musculoskeletal system. 14:51 Reassessment: Patient appears in no apparent distress at this time. No changes from tl3 previously documented assessment. Patient and/or family updated on plan of care and expected duration. Pain level reassessed. Patient is alert, oriented x 3, equal unlabored respirations, skin warm/dry/pink. pt sleeping, no needs at this time. Vital Signs: 11:28 BP 147 / 89; Pulse 71; Resp 16; Temp 98.9; Pulse Ox 98% on R/A; Weight 99.34 kg; Height aj 5 ft. 6 in. (167.64 cm); 13:19 BP 128 / 91; Pulse 81; Resp 18; Pulse Ox 97% ; tl3 14:51 BP 120 / 80; Pulse 64; Resp 18; Pulse Ox 99% on R/A; tl3 11:28 Body Mass Index 35.35 (99.34 kg, 167.64 cm) ED Course: 11:13 Patient arrived in ED. mr 11:13 None, None is Private Physician. mr 11:28 Triage completed. aj 11:28 Arm band placed on left wrist. Patient placed in waiting room. Patient EKG paged. aj 12:26 EKG done, by distribution technician. reviewed by Adonis Vu MD. at1 13:10 Patient has correct armband on for positive identification. Bed in low position. Call tl3 light in reach. Side rails up X 1. quality assurance monitor chassis on. Pulse ox on. NIBP on. 13:10 No provider procedures requiring assistance completed. tl3 13:18 Maryana Roberson, RN is Primary Nurse. tl3 13:19 Lisandra Moore FNP-C is PHCP. kb 13:19 Adonis Vu MD is Attending Physician. kb 13:40 Initial lab(s) drawn, by me, sent to lab. Urine collected: clean catch specimen, clear, jp3 dread colored. 13:55 Inserted saline lock: 20 gauge in right antecubital area, using aseptic technique. jp3 Blood collected. 13:56 Basic Metabolic Panel Sent. jp3 13:56 CBC with Diff Sent. jp3 13:56 LFT's Sent. jp3 13:56 Magnesium Sent. jp3 13:56 PT-INR Sent. jp3 13:56 NT PRO-BNP Sent. jp3 13:56 Troponin (emerg Dept Use Only) Sent. jp3 14:11 X-ray completed. Portable x-ray completed in exam room. Patient tolerated procedure ag1 well. 14:12 XRAY Chest (1 view) In Process Unspecified. EDMS 15:54 REPEAT EKG WAS DONE. sm3 17:15 IV discontinued, intact, bleeding controlled, No redness/swelling at site. Pressure tl3 dressing applied. Administered Medications: 15:23 Drug: NS 0.9% 1000 ml Route: IV; Rate: 1000 ml; Site: right antecubital; Delivery: tl3 Primary tubing; 16:30 Follow up: IV Status: Completed infusion; IV Intake: 1000ml tl3 Point of Care Testing: Blood Glucose: 11:28 Blood Glucose: 314 mg/dL; aj Ranges: Intake: 16:30 IV: 1000ml; Total: 1000ml. tl3 Outcome: 16:48 Discharge ordered by . kb 17:31 Patient left the ED. tl3 17:35 Discharge instructions given to patient, Instructed on discharge instructions, follow tl3 up and referral plans. Demonstrated understanding of instructions, follow-up care. 17:49 Discharged to home ambulatory. tl3 17:49 Condition: stable Signatures: Dispatcher [employer] Lisandra Chaves, RAMSES GRANTP-Adelaida Ybarra, RN Ling Kim mr MorganAdelaida, boiler tube blower EKG Tat1 Es Steele1 Maryana Roberson RN RN tl3 Christine Pride 3 Jesse Driscoll 3
--- NOTE | 2018-02-12 16:49 | EDPHYS ---
Physician Documentation [facility] Name: Jeremy Elias Age: 42 yrs Sex: Male : 1975 Arrival Date: 02/12/2018 Time: 11:13 Bed 24 Private MD: None, None ED Physician Adonis Vu HPI: 02/12 16:49 This 42 yrs old Male presents to ER via Ambulatory with complaints of High kb Blood Sugar. 16:49 The patient or guardian reports hyperglycemia, that was potentially precipitated by no kb particular event. 16:49 Onset: The symptoms/episode began/occurred 1 week(s) ago. Associated signs and kb symptoms: Pertinent positives: chest pain. Current symptoms: In the emergency department the patient's symptoms are unchanged from the initial presentation. The patient has experienced similar episodes in the past, several times. The patient has not recently seen a physician. Pt reports high blood sugar and chest pain for a week. 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 Historical: - Allergies: 11:28 No Known Allergies; aj - Home Meds: 11:28 Glipizide Oral [Active]; Metformin Oral [Active]; aj - PMHx: 11:28 Diabetes - NIDDM; aj - PSHx: 11:28 colostomy with reversal; Hernia repair; aj - Immunization history:: Adult Immunizations up to date. - Social history:: Smoking status: Patient/guardian denies using tobacco. - Ebola Screening: : Patient negative for fever greater than or equal to 101.5 degrees Fahrenheit, and additional compatible Ebola Virus Disease symptoms Patient denies exposure to infectious person Patient denies travel to an Ebola-affected area in the 21 days before illness onset No symptoms or risks identified at this time. ROS: 16:49 Constitutional: Negative for fever, chills, and weight loss, ENT: Negative for injury, kb pain, and discharge, Respiratory: Negative for shortness of breath, cough, wheezing, and pleuritic chest pain, Abdomen/GI: Negative for abdominal pain, nausea, vomiting, diarrhea, and constipation, Back: Negative for injury and pain, MS/Extremity: Negative for injury and deformity, Skin: Negative for injury, rash, and discoloration, Neuro: Negative for headache, weakness, numbness, tingling, and seizure. 16:49 Cardiovascular: Positive for chest pain, Negative for edema, orthopnea, palpitations, paroxysmal nocturnal dyspnea. Exam: 16:49 Constitutional: This is a well developed, well nourished patient who is awake, alert, kb and in no acute distress. Head/Face: Normocephalic, atraumatic. ENT: Nares patent. No nasal discharge, no septal abnormalities noted. Tympanic membranes are normal and external auditory canals are clear. Oropharynx with no redness, swelling, or masses, exudates, or evidence of obstruction, uvula midline. Mucous membranes moist. Neck: Trachea midline, no thyromegaly or masses palpated, and no cervical lymphadenopathy. Supple, full range of motion without nuchal rigidity, or vertebral point tenderness. No Meningismus. Chest/axilla: Normal chest wall appearance and motion. Nontender with no deformity. No lesions are appreciated. Cardiovascular: Regular rate and rhythm with a normal S1 and S2. No gallops, murmurs, or rubs. Normal PMI, no JVD. No pulse deficits. Respiratory: Lungs have equal breath sounds bilaterally, clear to auscultation and percussion. No rales, rhonchi or wheezes noted. No increased work of breathing, no retractions or nasal flaring. Abdomen/GI: Soft, non-tender, with normal bowel sounds. No distension or tympany. No guarding or rebound. No evidence of tenderness throughout. Skin: Warm, dry with normal turgor. Normal color with no rashes, no lesions, and no evidence of cellulitis. MS/ Extremity: Pulses equal, no cyanosis. Neurovascular intact. Full, normal range of motion. Neuro: Awake and alert, GCS 15, oriented to person, place, time, and situation. Cranial nerves II-XII grossly intact. Motor strength 5/5 in all extremities. Sensory grossly intact. Cerebellar exam normal. Normal gait. Vital Signs: 11:28 BP 147 / 89; Pulse 71; Resp 16; Temp 98.9; Pulse Ox 98% on R/A; Weight 99.34 kg; Height aj 5 ft. 6 in. (167.64 cm); 13:19 BP 128 / 91; Pulse 81; Resp 18; Pulse Ox 97% ; tl3 14:51 BP 120 / 80; Pulse 64; Resp 18; Pulse Ox 99% on R/A; tl3 11:28 Body Mass Index 35.35 (99.34 kg, 167.64 cm) aj MDM: 13:19 Patient medically screened. kb 16:49 Data reviewed: vital signs, nurses notes. Data interpreted: Pulse oximetry: on room air kb is 99 %. Interpretation: normal. Counseling: I had a detailed discussion with the patient and/or guardian regarding: the historical points, exam findings, and any diagnostic results supporting the discharge/admit diagnosis, lab results, radiology results, the need for outpatient follow up, a family practitioner, to return to the emergency department if symptoms worsen or persist or if there are any questions or concerns that arise at home. 02/12 13:24 Order name: Basic Metabolic Panel; Complete Time: 14:09 kb 02/12 13:24 Order name: CBC with Diff; Complete Time: 15:57 kb 02/12 13:24 Order name: LFT's; Complete Time: 14:09 kb 02/12 13:24 Order name: Magnesium; Complete Time: 14:09 kb 02/12 13:24 Order name: NT PRO-BNP; Complete Time: 14:09 kb 02/12 13:24 Order name: PT-INR; Complete Time: 14:06 kb 02/12 13:24 Order name: Troponin (emerg Dept Use Only); Complete Time: 14:09 kb 02/12 13:24 Order name: XRAY Chest (1 view); Complete Time: 14:52 kb 02/12 13:24 Order name: EKG; Complete Time: 13:25 kb 02/12 13:52 Order name: Urine Dipstick--Ancillary (enter results); Complete Time: 16:45 bd 02/12 14:45 Order name: CBC Smear Scan; Complete Time: 15:57 EDMS 02/12 15:25 Order name: EKG; Complete Time: 15:26 kb 02/12 15:25 Order name: Troponin (emerg Dept Use Only); Complete Time: 16:45 kb 02/12 13:24 Order name: Cardiac monitoring; Complete Time: 15:54 kb 02/12 13:24 Order name: EKG - Nurse/Tech; Complete Time: 15:54 kb 02/12 13:24 Order name: IV Saline Lock; Complete Time: 13:56 kb 02/12 13:24 Order name: Labs collected and sent; Complete Time: 13:56 kb 02/12 13:24 Order name: O2 Per Protocol; Complete Time: 15:23 kb 02/12 13:24 Order name: O2 Sat Monitoring; Complete Time: 15:23 kb 02/12 15:25 Order name: EKG - Nurse/Tech; Complete Time: 15:54 kb Administered Medications: 15:23 Drug: NS 0.9% 1000 ml Route: IV; Rate: 1000 ml; Site: right antecubital; Delivery: tl3 Primary tubing; 16:30 Follow up: IV Status: Completed infusion; IV Intake: 1000ml tl3 Point of Care Testing: Blood Glucose: 11: Blood Glucose: 314 mg/dL; kayy Ranges: Critical Glucose Levels:Adult <50 mg/dl or >400 mg/dl <40 mg/dl or >180 mg/dl Disposition: 02/13 13:53 Co-signature as Attending Physician, Adonis Vu MD I agree with the assessment and kdr plan of care. Disposition: 02/12/18 16:48 Discharged to Home. Impression: Hyperglycemia, unspecified, Chest pain, unspecified. - Condition is Stable. - Discharge Instructions: Nonspecific Chest Pain, [id number], Hyperglycemia, [id number]. - Work release form, Medication Reconciliation Form, Thank You Letter, Antibiotic Education, Prescription Opioid Use form. - Follow up: Private Physician; Reason: Recheck today's complaints, Continuance of care, Re-evaluation by your physician. Follow up: Emergency Department; When: As needed; Reason: Worsening of condition. Signatures: Dispatcher [employer] NORYHI Lisandra Moore, GOLDSMITH APPRENTICE-C GOLDSMITH APPRENTICE-Ckb Adelaida Roberts RN RN aj Rittger, Kevin, MD MD kdr Lowrey, Tammy, RN RN tl3 Corrections: (The following items were deleted from the chart) 02/12 17:31 16:48 02/12/2018 16:48 Discharged to Home. Impression: Hyperglycemia, unspecified; tl3 Chest pain, unspecified. Condition is Stable. Forms are Medication Reconciliation Form, Thank You Letter, Antibiotic Education, Prescription Opioid Use. Follow up: Private Physician; Reason: Recheck today's complaints, Continuance of care, Re-evaluation by your physician. Follow up: Emergency Department; When: As needed; Reason: Worsening of condition. kb
[2018-02-12] MEDS ORDERED: ONDANSETRON 4 MG (ODT) TAB ONE (19:39)
--- NOTE | 2018-02-13 12:35 | EKG ---
Test Date: 2018-02-12 Test Time: 15:47:36 Noodle Press Operator: DIONNE MEASUREMENT RESULTS: Intervals: Rate: 69 [place]: 144 QRSD: 96 QT: 396 QTc: 424 [place]: P: 20 [place]: 144 QRS: -6 T: 34 INTERPRETIVE STATEMENTS: Normal sinus rhythm Lateral infarct, age undetermined Possible Inferior infarct, age undetermined Abnormal ECG Compared to ECG 02/12/2018 12:09:14 No significant changes Electronically Signed On 02-13-18 12:33:07 SECURITIES ANALYST by Rickey Thompson
== END 2018-02-12 17:31 | disposition home or self-care (01) ==
LOC: ER 11:08
DX: E11.65 Type 2 diabetes mellitus with hyperglycemia (principal)
CPT/HCPCS: 36415; 71045; 80048; 80076; 81003; 82962; 83735; 83880; 84484; 85025; 85610; 93005; 96360; 99284; J7030